=== PATIENT | female | born 1995 ===

== ENCOUNTER 2020-10-06 14:37 | Emergency (ER) | payer BC ==
--- NOTE | 2020-10-06 15:29 | EDM.PDOC ---
ED HPI GENERAL MEDICAL PROBLEM - General Chief Complaint: Genitourinary Problem Stated Complaint: POSSIBLE KIDNEY INFECTION Time Seen by Provider: 10/06/20 14:39 - History of Present Illness INITIAL COMMENTS - FREE TEXT/NARRATIVE: History of present illness: [] Patient is here for left flank pain radiating to left lower quadrant of the anterior abdomen. It is moderately severe. She has vomited at 1030 this morning. She has been nauseated. The patient has suffered from pain for most of her 16-week . Beginning of August she was told she had a ureter obstruction. In the middle of August she followed up with a urologist in [place] who told her that everything seemed okay. Previously had a course of antibiotics have been placed in the hospital for several days because of possible obstruction of her ureters. They never identified a stone for sure. A urologist in 08 September cleared her in [place] and said she was having pain secondary to just normal development of . She is a with 1 spontaneous at an early in . The patient was told she had a bladder infection the beginning of this month and had a 5-day course of Macrodantin. She continues to have the flank pain. Its worse with movement. Review of systems: As per history of present illness and below otherwise all systems reviewed and negative. Past medical history: As per history of present illness and as reviewed below otherwise noncontributory. Surgical history: As per history of present illness and as reviewed below otherwise noncontributory. Social history: No reported history of drug or alcohol abuse. Family history: As per history of present illness and as reviewed below otherwise noncontributory. Physical exam: Constitutional - well developed, well-nourished and in no acute distress HEENT - normocephalic, no evidence of trauma - external nose and mouth normal - no mass in neck and no JVD - mucosae moist EYES - full EOM, PERRL, no icterus - no evidence of inflammation, injection, or drainage Respiratory - no respiratory distress, equal bilateral expansion, lungs clear to auscultation and no abnormal lung sounds Cardiovascular - Regular Rhythm with S1 and S2 appreciated and no murmur, gallop or rub. GI - abdomen soft without distension or organomegaly - normal bowel sounds - no guard or rebound Musculoskeletal no gross deformity of long bones or joints - no tenderness, swelling or edema Neurologic - Alert and oriented times four - CN II-XII grossly intact - motor sensory and coordination symmetrically normal Psychiatric - appropriate mood and affect with normal thought content Hematologic - No petechiae or purpura - mucosa appropriate color and sclera not pale - normal nail bed color and refill Integument - no rash or evidence of trauma - normal turgor Diagnostics: [] Therapeutics: [] Impression: [] Plan: [] Definitive disposition and diagnosis as appropriate pending reevaluation and review of above. 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 Musculoskeletal History: Reports: None Neurological History: Reports: None Psychiatric History: Reports: Anxiety, Bipolar Endocrine/Metabolic History: Reports: None Hematologic History: Reports: None Oncologic (Cancer) History: Reports: None Dermatologic History: Reports: None - Infectious Disease History Infectious Disease History: Reports: Chicken Pox Social & Family History - Tobacco Use Tobacco Use Status *Q: Never Tobacco User - Caffeine Use Caffeine Use: Reports: None - Recreational Drug Use Recreational Drug Use: No ED ROS GENERAL - Review of Systems Review Of Systems: Comprehensive ROS is negative, except as noted in HPI. ED EXAM, GENERAL - Physical Exam Exam: See Below Free Text/Narrative:: My physical exam is in the HPI Course - Vital Signs Text/Narrative:: 1814-discussed with Dr. Layne. He had a ureteral stent was not indicated at this time. Follow-up arranged. Last Recorded V/S: Last Vital Signs Temp 36.2 C 10/06/20 15:01 Pulse 72 10/06/20 15:01 Resp 16 10/06/20 15:01 BP 105/55 L 10/06/20 15:01 Pulse Ox 100 10/06/20 15:01 - Orders/Labs/Meds Labs: Laboratory Tests 10/06/20 10/06/20 10/06/20 Range/Units 15:05 15:05 16:38 WBC 10.68 (4.0-11.0) K/uL RBC 3.75 L (4.30-5.90) M/uL Hgb 11.8 L (12.0-16.0) g/dL Hct 34.6 L (36.0-46.0) % MCV 92.3 (80.0-98.0) fL MCH 31.5 (27.0-32.0) pg MCHC 34.1 (31.0-37.0) g/dL RDW Std Deviation 43.7 (28.0-62.0) fl RDW Coeff of Jakub 13 (11.0-15.0) % Plt Count 230 (150-400) K/uL MPV 9.70 (7.40-12.00) fL Neut % (Auto) 77.4 (48.0-80.0) % Lymph % (Auto) 17.4 (16.0-40.0) % [place] % (Auto) 4.6 (0.0-15.0) % Eos % (Auto) 0.4 (0.0-7.0) % Baso % (Auto) 0.2 (0.0-1.5) % Neut # (Auto) 8.3 H (1.4-5.7) K/uL Lymph # (Auto) 1.9 (0.6-2.4) K/uL [place] # (Auto) 0.5 (0.0-0.8) K/uL Eos # (Auto) 0.0 (0.0-0.7) K/uL Baso # (Auto) 0.0 (0.0-0.1) K/uL Nucleated RBC % 0.0 /100WBC Nucleated RBCs # 0 K/uL Sodium (136-145) mmol/L Potassium (3.5-5.1) mmol/L Chloride (98-107) mmol/L Carbon Dioxide (21.0-32.0) mmol/L BUN (7.0-18.0) mg/dL Creatinine (0.6-1.0) mg/dL Est Cr Clr Drug Dosing mL/min Estimated GFR (MDRD) ml/min Glucose (74-106) mg/dL Calcium (8.5-10.1) mg/dL Total Bilirubin (0.2-1.0) mg/dL AST (15-37) IU/L ALT (14-63) IU/L Alkaline Phosphatase (46-116) U/L Total Protein (6.4-8.2) g/dL Albumin (3.4-5.0) g/dL Globulin (2.6-4.0) g/dL Albumin/Globulin Ratio (0.9-1.6) Lipase (73-393) U/L Urine Color YELLOW Urine Appearance CLEAR Urine pH 6.5 (5.0-8.0) Ur Specific [place] <= 1.005 (1.001-1.035) Urine Protein NEGATIVE (NEGATIVE) mg/dL Urine Glucose (UA) NEGATIVE (NEGATIVE) mg/dL Urine Ketones TRACE H (NEGATIVE) mg/dL Urine Occult Blood TRACE-INTACT H (NEGATIVE) Urine Nitrite NEGATIVE (NEGATIVE) Urine Bilirubin NEGATIVE (NEGATIVE) Urine Urobilinogen 0.2 (<2.0) EU/dL Ur Leukocyte Esterase NEGATIVE (NEGATIVE) Urine RBC 0-2 (0-2/HPF) Urine WBC 0-2 (0-5/HPF) Ur Epithelial Cells OCCASIONAL (NONE-FEW) Amorphous Sediment RARE (NEGATIVE) Urine Bacteria RARE (NEGATIVE) Urine Mucus RARE (NONE-MOD) Urine HCG, Qual POSITIVE (NEGATIVE) 10/06/20 Range/Units 16:38 WBC (4.0-11.0) K/uL RBC (4.30-5.90) M/uL Hgb (12.0-16.0) g/dL Hct (36.0-46.0) % MCV (80.0-98.0) fL MCH (27.0-32.0) pg MCHC (31.0-37.0) g/dL RDW Std Deviation (28.0-62.0) fl RDW Coeff of Jakub (11.0-15.0) % Plt Count (150-400) K/uL MPV (7.40-12.00) fL Neut % (Auto) (48.0-80.0) % Lymph % (Auto) (16.0-40.0) % [place] % (Auto) (0.0-15.0) % Eos % (Auto) (0.0-7.0) % Baso % (Auto) (0.0-1.5) % Neut # (Auto) (1.4-5.7) K/uL Lymph # (Auto) (0.6-2.4) K/uL [place] # (Auto) (0.0-0.8) K/uL Eos # (Auto) (0.0-0.7) K/uL Baso # (Auto) (0.0-0.1) K/uL Nucleated RBC % /100WBC Nucleated RBCs # K/uL Sodium 139 (136-145) mmol/L Potassium 3.7 (3.5-5.1) mmol/L Chloride 102 (98-107) mmol/L Carbon Dioxide 24.1 (21.0-32.0) mmol/L BUN 6 L (7.0-18.0) mg/dL Creatinine 0.6 (0.6-1.0) mg/dL Est Cr Clr Drug Dosing 131.85 mL/min Estimated GFR (MDRD) > 60.0 ml/min Glucose 83 (74-106) mg/dL Calcium 9.2 (8.5-10.1) mg/dL Total Bilirubin 0.4 (0.2-1.0) mg/dL AST 19 (15-37) IU/L ALT 21 (14-63) IU/L Alkaline Phosphatase 57 (46-116) U/L Total Protein 7.2 (6.4-8.2) g/dL Albumin 3.4 (3.4-5.0) g/dL Globulin 3.8 (2.6-4.0) g/dL Albumin/Globulin Ratio 0.9 (0.9-1.6) Lipase 65 L (73-393) U/L Urine Color Urine Appearance Urine pH (5.0-8.0) Ur Specific [place] (1.001-1.035) Urine Protein (NEGATIVE) mg/dL Urine Glucose (UA) (NEGATIVE) mg/dL Urine Ketones (NEGATIVE) mg/dL Urine Occult Blood (NEGATIVE) Urine Nitrite (NEGATIVE) Urine Bilirubin (NEGATIVE) Urine Urobilinogen (<2.0) EU/dL Ur Leukocyte Esterase (NEGATIVE) Urine RBC (0-2/HPF) Urine WBC (0-5/HPF) Ur Epithelial Cells (NONE-FEW) Amorphous Sediment (NEGATIVE) Urine Bacteria (NEGATIVE) Urine Mucus (NONE-MOD) Urine HCG, Qual (NEGATIVE) Departure - Departure Time of Disposition: 18:39 Disposition: Home, Self-Care 01 Condition: Good Clinical Impression: Abdominal pain, Hydronephrosis - Discharge Information Prescriptions: Acetaminophen/HYDROcodone [Yolyn 325-7.5 MG] 1 - 2 tab PO Q6H PRN #14 tab PRN Reason: Pain (Severe 7-10) Instructions: Hydronephrosis, Flank Pain, Adult, [id number] Referrals: PCP,Not In Area [Primary Care Provider] - Leighton Layne MD [Physician] - Forms: ED Department Discharge Additional Instructions: [facility] - Urology [address] [place] [id number] The following information is given to patients seen in the emergency department who are being discharged to home. This information is to outline your options for follow-up care. We provide all patients seen in our emergency department with a follow-up referral. The need for follow-up, as well as the timing and circumstances, are variable depending upon the specifics of your emergency department visit. If you don't have a primary care physician on staff, we will provide you with a referral. We always advise you to contact your personal physician following an emergency department visit to inform them of the circumstance of the visit and for follow-up with them and/or the need for any referrals to a consulting specialist. The emergency department will also refer you to a specialist when appropriate. This referral assures that you have the opportunity for follow-up care with a specialist. All of these measure are taken in an effort to provide you with optimal care, which includes your follow-up. Under all circumstances we always encourage you to contact your private physician who remains a resource for coordinating your care. When calling for follow-up care, please make the office aware that this follow-up is from your recent emergency room visit. If for any reason you are refused follow-up, please contact the [facility] Department at and asked to speak to the emergency department charge nurse. Sepsis Event Note (ED) - Evaluation Sepsis Screening Result: No Definite Risk - Focused Exam Vital Signs: Vital Signs Temp Pulse Resp BP Pulse Ox 10/06/20 15:01 36.2 C 72 16 105/55 L 100
--- NOTE | 2020-10-06 17:01 | US ---
Indication: Left flank pain, recent UTI Technique: Multiple grayscale and color Doppler sonographic images of the kidneys and urinary bladder. Comparison: None Findings: The right kidney measures 10.6 x 4.6 x 5.1 cm and demonstrates normal renal cortical thickness and parenchymal echotexture. There is no hydronephrosis. The left kidney measures 13.0 x 5.3 x 7.0 cm and demonstrates normal cortical thickness and parenchymal echotexture. There is mild to moderate hydronephrosis. No stones are seen in the renal collecting system or visualized proximal ureter. The urinary bladder is unremarkable. Bilateral ureteral jets are demonstrated. There is postvoid bladder volume approximately 9 mL. Impression: 1. Mild to moderate left hydronephrosis. No renal stone demonstrated in the renal collecting system or visualized proximal ureter. The mid to distal ureter is not visualized. 2. Unremarkable right kidney. Unremarkable urinary bladder. Bilateral ureteral jets demonstrated. Dictated by Amandeep Rosales MD @ Oct 06 2020 4:54PM Signed by Dr. Amandeep Rosales @ Oct 06 2020 5:00PM
[2020-10-06 17:39] LABS: BLOOD UREA NITROGEN,BUN 6 mg/dL (7.0-18.0); CARBON DIOXIDE,CO2 24.1 mmol/L (21.0-32.0); CHLORIDE,CL 102 mmol/L (98-107); GLUCOSE RANDOM 83 mg/dL (74-106); LIPASE 65 U/L (73-393); POTASSIUM,K 3.7 mmol/L (3.5-5.1); SODIUM,NA 139 mmol/L (136-145)
== END 2020-10-06 18:50 | disposition home or self-care (01) ==
LOC: MW.ED 14:37
DX: O99.891 Other specified diseases and conditions complicating pregnancy (principal); R10.32 Left lower quadrant pain; N13.30 Unspecified hydronephrosis; Z91.040 Latex allergy status; Z88.5 Allergy status to narcotic agent; Z3A.16 16 weeks gestation of pregnancy
CPT/HCPCS: 36415; 76775; 76775-26; 80053; 81001; 81025; 83690; 85025; 99283; 99284-25

== ENCOUNTER 2021-03-11 11:44 | Inpatient (IN) | payer BC ==
[2021-03-11] MEDS ORDERED: Ondansetron 4 MG/2 ML SDV IVPUSH PRN (11:45)
[2021-03-11] MEDS ORDERED: Butorphanol 1 MG/ML SDV IVPUSH PRN (11:45)
[2021-03-11] MEDS ORDERED: Water For Irrigation,Sterile 1,000 ML Container IRR PRN (11:45)
[2021-03-11] MEDS ORDERED: Nalbuphine 10 MG/1 ML Vial IVPUSH PRN (11:45)
[2021-03-11] MEDS ORDERED: Tranexamic Acid 1,000 MG in Sodium Chloride 0.9% 100 ML IV PRN (13:10)
[2021-03-11] MEDS ORDERED: Lidocaine 1% 50 ML MDV INJECT PRN (13:10)
[2021-03-11] MEDS ORDERED: Misoprostol 200 MCG Tab PO PRN (13:10)
[2021-03-11] MEDS ORDERED: Sodium Chloride 0.9% 10 ML Syringe FLUSH PRN (13:10)
[2021-03-11] MEDS ORDERED: Carboprost Tromethamine 250 MCG/1 ML Amp IM PRN (13:10)
[2021-03-11] MEDS ORDERED: Methylergonovine 0.2 MG/1 ML Amp IM PRN (13:10)
[2021-03-11] MEDS ORDERED: Terbutaline 1 MG/ML SDV SUBCUT PRN (13:10)
[2021-03-11] MEDS ORDERED: Sodium Chloride 0.9% 10 ML SDV IV PRN (13:10)
[2021-03-11] MEDS ORDERED: Sodium Chloride 0.9% 2.5 ML Syringe FLUSH PRN (13:10)
[2021-03-11] MEDS ORDERED: Misoprostol 25 MCG (1/4 of 100 MCG) Tab VAG PRN ×2 (13:10)
[2021-03-11] MEDS ORDERED: Oxytocin/0.9 % Sodium Chloride 30 UNIT/500 ML BAG IV SCH ×2 (13:15)
[2021-03-11] MEDS: Misoprostol 25 MCG (1/4 of 100 MCG) Tab PO SCH ×2 (13:48→23:16)
[2021-03-11] MEDS: Lactated Ringers 1,000 ML IV SCH ×4 (14:03→23:16)
[2021-03-11 15:16] LABS: BLOOD UREA NITROGEN,BUN 10 mg/dL (7.0-18.0); CARBON DIOXIDE,CO2 24.5 mmol/L (21.0-32.0); CHLORIDE,CL 103 mmol/L (98-107); GLUCOSE RANDOM 81 mg/dL (74-106); POTASSIUM,K 3.9 mmol/L (3.5-5.1); SODIUM,NA 135 mmol/L (136-145)
--- NOTE | 2021-03-11 15:45 | PCM.LDHP ---
L&D History of Present Illness - General Date of Service: 03/11/21 Admit Problem/Dx: Patient Status Order with Admit Dx/Problem 03/11/21 11:45 Patient Status [ADT] Routine Admission Diagnosis/Problem Admission Diagnosis/Problem 03/11/21 15:45 Mone is a 25 yo at 39+0 weeks (PRESTON(US) 03/18/2021) that presents today for IOL re: renal calculi complicated with nephrostomy tube left side. Reports FM. Denies vaginal bleeding, LOF, painful contractions or any other problems at this time. O pos, RI, GBS neg Ax: morphine, latex. Pertinent medical hx: renal calculi complicated with nephrostomy tube left side, migraines, anxiety, depression. Last seen in clinic 03/08/2021, RBAs/SEs of IOL with cervical ripening methods including cytotec administration discussed in office, consents signed. Patient verbalizes desire to continue with IOL POC; no questions, comments, or concerns at this time. 03/11/21 15:55 Source of Information: Patient History Limitations: Reports: No Limitations - History of Present Illness Improves with: Reports: None Worsens with: Reports: None Associated Symptoms: Reports: N - Related Data Allergies/Adverse Reactions: Allergies Allergy/AdvReac Type Severity Reaction Status Date / Time latex Allergy Itching Verified 03/11/21 11:57 morphine Allergy Difficulty Verified 03/11/21 11:57 Breathing Home Medications: Home Meds Acetaminophen/Butalbital/Caff [Fioricet 325-50-40 MG] 1 each PO Q4H 03/11/21 [History] Cefdinir [Omnicef] 600 mg PO DAILY 03/11/21 [History] Sertraline [Zoloft] 1 tab PO DAILY 03/11/21 [History] hydrOXYzine HCL [Atarax] 50 mg PO BEDTIME 03/11/21 [History] Past Medical History HEENT History: Reports: None Cardiovascular History: Reports: None Respiratory History: Reports: None Gastrointestinal History: Reports: None Genitourinary History: Reports: Pyelonephritis, Renal Calculus (Left nephrostomy in place.), UTI, Recurrent 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 History: Reports: , Spontaneous (x 1) : 2 Para: 0 LMP (Approximate): Other OB/BYN History: pt is 18 weeks Musculoskeletal History: Reports: None Neurological History: Reports: Migraines Psychiatric History: Reports: Anxiety (untreated), Bipolar (untreated), Depression (untreated), Eating Disorders, Other (See Below) (Insomnia) Endocrine/Metabolic History: Reports: None Hematologic History: Reports: None Oncologic (Cancer) History: Reports: None Dermatologic History: Reports: None - Infectious Disease History Infectious Disease History: Reports: Chicken Pox - Past Surgical History HEENT Surgical History: Reports: Other (See Below) (Mandible surgery) GI Surgical History: Reports: Colonoscopy (x 2), EGD (x 2) Social & Family History - Family History Family Medical History: No Pertinent Family History - Tobacco Use Tobacco Use Status *Q: Never Tobacco User - Caffeine Use Caffeine Use: Reports: None - Alcohol Use Alcohol Use History: No - Recreational Drug Use Recreational Drug Use: No - Living Situation & Occupation Living situation: Reports: Single, with Significant Other (Boyfriend) Occupation: Employed ([employer]) H&P Review of Systems - Review of Systems: Review Of Systems: Comprehensive ROS is negative, except as noted in HPI. General: Reports: No Symptoms HEENT: Reports: No Symptoms Pulmonary: Reports: No Symptoms Cardiovascular: Reports: No Symptoms Gastrointestinal: Reports: No Symptoms Genitourinary: Reports: No Symptoms Musculoskeletal: Reports: No Symptoms Skin: Reports: No Symptoms Psychiatric: Reports: No Symptoms Neurological: Reports: No Symptoms Hematologic/Lymphatic: Reports: No Symptoms Immunologic: Reports: No Symptoms L&D Exam - Exam Exam: See Below - Vital Signs Vital Signs: VSS, afebrile. See flowsheet Weight: 201 lb - OB Specific Fundal Height In cm: 39 Contraction Duration (sec): 40-70 Contraction Frequency (min): Occasional mild Contraction Intensity: Irritability Movement: Active Heart Tones: Present Heart Tones per Min: 140 Heart Rate (FHR) Variability: Moderate (6-25 bmp) Presentation: Vertex (via handheld TAUS) - Obregon Score Obregon Score Cervix Position: Posterior Obregon Score Consistency: Firm Obregon Score Effacement: 0-30% Obregon Score Dilation: Closed Obregon Score Infant's Station: -3 Obregon Score Total: 0 - Exam General: Alert, Oriented, Cooperative HEENT: Conjunctiva Clear, Mucosa Moist & Bernice, PERRLA Neck: Supple, Trachea Midline Lungs: Clear to Auscultation, Normal Respiratory Effort Cardiovascular: Regular Rate, Regular Rhythm GI/Abdominal Exam: Normal Bowel Sounds, Soft, Non-Tender, No Organomegaly, No Distention Rectal Exam: Deferred Genitourinary: Normal external exam, Normal bimanual exam, Enlarged uterus (Gravid uterus) Back Exam: Normal Inspection, Full Range of Motion Extremities: Normal Inspection, Normal Range of Motion, Non-Tender, No Pedal Edema, Normal Capillary Refill Skin: Warm, Dry, Intact Neurological: Cranial Nerves Intact, Reflexes Equal Bilateral Psychiatric: Alert, Normal Affect, Normal Mood - Patient Data Lab Results Last 24 hrs: Laboratory Results - last 24 hr 03/11/21 03/11/21 03/11/21 Range/Units 12:50 12:55 12:55 WBC 10.82 (4.0-11.0) K/uL RBC 3.76 L (4.30-5.90) M/uL Hgb 10.4 L (12.0-16.0) g/dL Hct 31.9 L (36.0-46.0) % MCV 84.8 (80.0-98.0) fL MCH 27.7 (27.0-32.0) pg MCHC 32.6 (31.0-37.0) g/dL RDW Std Deviation 43.1 (28.0-62.0) fl RDW Coeff of Jakub 14 (11.0-15.0) % Plt Count 308 (150-400) K/uL MPV 10.00 (7.40-12.00) fL Nucleated RBC % 0.0 /100WBC Nucleated RBCs # 0 K/uL Sodium (136-145) mmol/L Potassium (3.5-5.1) mmol/L Chloride (98-107) mmol/L Carbon Dioxide (21.0-32.0) mmol/L BUN (7.0-18.0) mg/dL Creatinine (0.6-1.0) mg/dL Est Cr Clr Drug Dosing mL/min Estimated GFR (MDRD) ml/min Glucose (74-106) mg/dL Calcium (8.5-10.1) mg/dL SARS-CoV-2 RNA (TNOY) NEGATIVE (NEGATIVE) Blood Type O POSITIVE Antibody Screen NEGATIVE 03/11/21 Range/Units 12:55 WBC (4.0-11.0) K/uL RBC (4.30-5.90) M/uL Hgb (12.0-16.0) g/dL Hct (36.0-46.0) % MCV (80.0-98.0) fL MCH (27.0-32.0) pg MCHC (31.0-37.0) g/dL RDW Std Deviation (28.0-62.0) fl RDW Coeff of Jakub (11.0-15.0) % Plt Count (150-400) K/uL MPV (7.40-12.00) fL Nucleated RBC % /100WBC Nucleated RBCs # K/uL Sodium 135 L (136-145) mmol/L Potassium 3.9 (3.5-5.1) mmol/L Chloride 103 (98-107) mmol/L Carbon Dioxide 24.5 (21.0-32.0) mmol/L BUN 10 (7.0-18.0) mg/dL Creatinine 0.8 (0.6-1.0) mg/dL Est Cr Clr Drug Dosing 98.88 mL/min Estimated GFR (MDRD) > 60.0 ml/min Glucose 81 (74-106) mg/dL Calcium 7.9 L (8.5-10.1) mg/dL SARS-CoV-2 RNA (TONY) (NEGATIVE) Blood Type Antibody Screen Result Diagrams: 03/11/21 12:55 03/11/21 12:55 - Problem List (1) Encounter for induction of labor SNOMED Code(s): 359889317 ICD Code: Z34.90 - ENCNTR FOR SUPRVSN OF NORMAL , UNSP, UNSP TRIMEST ER Status: Acute Priority: High Current Visit: Yes (2) H/O nephrostomy SNOMED Code(s): 467583515 ICD Code: YTH9122 - Status: Acute Priority: High Current Visit: Yes (3) Renal calculus, left SNOMED Code(s): 83107437 ICD Code: N20.0 - CALCULUS OF KIDNEY Status: Acute Priority: High Current Visit: Yes Problem List Initiated/Reviewed/Updated: Yes Orders Last 24hrs: Active Orders 24 hr Category Date Time Status Patient Status [ADT] Routine ADT 03/11/21 11:45 Active Bedrest Bathroom Privileges [RC] ASDIRECTED Care 03/11/21 13:10 Active Communication Order [RC] ASDIRECTED Care 03/11/21 13:10 Active Communication Order [RC] ASDIRECTED Care 03/11/21 13:10 Active Communication Order [RC] ASDIRECTED Care 03/11/21 13:10 Active Heart Tones [RC] CONTINUOUS Care 03/11/21 11:45 Active Non Stress Test [RC] PER UNIT ROUTINE Care 03/11/21 11:45 Active May Shower [RC] ASDIRECTED Care 03/11/21 11:45 Active Notify Provider [RC] PRN Care 03/11/21 11:45 Active Notify Provider [RC] PRN Care 03/11/21 13:10 Active Notify Provider [RC] PRN Care 03/11/21 13:10 Active Notify Provider [RC] STAT Care 03/11/21 13:10 Active Oxygen Therapy [RC] ASDIRECTED Care 03/11/21 13:10 Active Up ad Ruth [RC] ASDIRECTED Care 03/11/21 11:45 Active Vaginal Exam [RC] PRN Care 03/11/21 11:45 Active Vaginal Exam [RC] PRN Care 03/11/21 13:10 Active Vital Signs [RC] PER UNIT ROUTINE Care 03/11/21 11:45 Active Vital Signs [RC] PER UNIT ROUTINE Care 03/11/21 13:10 Active Regular Diet [DIET] Diet 03/11/21 Lunch Active RPR (SYPHILIS SERO) W/ RFLX [REF] Routine Lab 03/11/21 12:55 Received Carboprost Tromethamine [Hemabate DS] Med 03/11/21 13:10 Active 250 mcg IM ASDIRECTED PRN Lactated Ringers [Ringers, Lactated] 1,000 ml Med 03/11/21 13:15 Active IV ASDIRECTED Lidocaine 1% [Xylocaine 1%] Med 03/11/21 13:10 Active 50 ml INJECT ONETIME PRN Methylergonovine [Methergine] Med 03/11/21 13:10 Active 0.2 mg IM ASDIRECTED PRN Ondansetron [Zofran] Med 03/11/21 11:45 Active 4 mg IVPUSH Q4H PRN Oxytocin/0.9 % Sodium Chloride [Oxytocin 30 Unit/500 ML Med 03/11/21 13:15 Active -NS] 30 unit in 500 ml IV TITRATE Oxytocin/0.9 % Sodium Chloride [Oxytocin 30 Unit/500 ML Med 03/11/21 13:15 Active -NS] 30 unit in 500 ml IV TITRATE Sodium Chloride 0.9% [Normal Saline] Med 03/11/21 13:10 Active 10 ml IV ASDIRECTED PRN Sodium Chloride 0.9% [Saline Flush] Med 03/11/21 13:10 Active 10 ml FLUSH ASDIRECTED PRN Sodium Chloride 0.9% [Saline Flush] Med 03/11/21 13:10 Active 2.5 ml FLUSH ASDIRECTED PRN Terbutaline [Brethine] Med 03/11/21 13:10 Active 0.25 mg SUBCUT ASDIRECTED PRN Tranexamic Acid [Cyklokapron] 1,000 mg Med 03/11/21 13:10 Active Sodium Chloride 0.9% [Normal Saline] 100 ml IV ONETIME Water For Irrigation,Sterile [Sterile Water for Med 03/11/21 11:45 Active Irrigation] 1,000 ml IRR ASDIRECTED PRN miSOPROStoL [Cytotec] Med 03/11/21 13:10 Active 200 mcg PO ONETIME PRN miSOPROStoL [Cytotec] Med 03/11/21 13:30 Active 25 mcg PO Q4H miSOPROStoL [Cytotec] Med 03/11/21 13:10 Active 25 mcg VAG ONETIME PRN miSOPROStoL [Cytotec] Med 03/11/21 13:10 Active 25 mcg VAG Q4H PRN Scalp Electrode [WOMSER] Per Unit Routine Oth 03/11/21 11:45 Ordered Medication Administration Instruction [OM.PC] Q3H Oth 03/11/21 13:15 Ordered Peripheral IV Insertion Adult [OM.PC] Routine Oth 03/11/21 11:45 Ordered Resuscitation Status Routine Resus Stat 03/11/21 13:10 Ordered Medication Orders Carboprost Tromethamine (Carboprost Tromethamine 250 Mcg/1 Ml Amp) 250 mcg IM ASDIRECTED PRN PRN Reason: Post Hemorrhage Oxytocin/Sodium Chloride (Oxytocin 30 Unit/500 Ml-Ns) 30 unit in 500 mls @ 999 mls/hr IV TITRATE ZANDER Tranexamic Acid 1,000 mg/ (Sodium Chloride) 110 mls @ 660 mls/hr IV ONETIME PRN PRN Reason: Bleeding Oxytocin/Sodium Chloride (Oxytocin 30 Unit/500 Ml-Ns) 30 unit in 500 mls @ 2 mls/hr IV TITRATE [facility]; Protocol Lactated Ringer's (Ringers, Lactated) 1,000 mls @ 150 mls/hr IV ASDIRECTED [facility] Last Admin: 03/11/21 14:03 Dose: 150 mls/hr Documented by: RANDELL Lidocaine HCl (Lidocaine 1% 50 Ml Mdv) 50 ml INJECT ONETIME PRN PRN Reason: Laceration repair Methylergonovine Maleate (Methylergonovine 0.2 Mg/1 Ml Amp) 0.2 mg IM ASDIRECTED PRN PRN Reason: Post Hemorrhage Misoprostol (Misoprostol 200 Mcg Tab) 200 mcg PO ONETIME PRN PRN Reason: Post Hemorrhage Misoprostol (Misoprostol 25 Mcg (1/4 Of 100 Mcg) Tab) 25 mcg VAG ONETIME PRN PRN Reason: Cervical Ripening Misoprostol (Misoprostol 25 Mcg (1/4 Of 100 Mcg) Tab) 25 mcg VAG Q4H PRN PRN Reason: Cervical Ripening Last Admin: 03/11/21 13:43 Dose: 25 mcg Documented by: RANDELL Misoprostol (Misoprostol 25 Mcg (1/4 Of 100 Mcg) Tab) 25 mcg PO Q4H [facility] Last Admin: 03/11/21 13:48 Dose: 25 mcg Documented by: RANDELL Ondansetron HCl (Ondansetron 4 Mg/2 Ml Sdv) 4 mg IVPUSH Q4H PRN PRN Reason: Nausea/Vomiting Sodium Chloride (Sodium Chloride 0.9% 10 Ml Syringe) 10 ml FLUSH ASDIRECTED PRN PRN Reason: Keep Vein Open Sodium Chloride (Sodium Chloride 0.9% 2.5 Ml Syringe) 2.5 ml FLUSH ASDIRECTED PRN PRN Reason: Keep Vein Open Sodium Chloride (Sodium Chloride 0.9% 10 Ml Sdv) 10 ml IV ASDIRECTED PRN PRN Reason: IV Use Sterile Water (Water For Irrigation,Sterile 1,000 Ml Container) 1,000 ml IRR ASDIRECTED PRN PRN Reason: delivery Terbutaline Sulfate (Terbutaline 1 Mg/Ml Sdv) 0.25 mg SUBCUT ASDIRECTED PRN PRN Reason: Tacysystole Assessment/Plan Comment:: Admit to inpatient observation for planned IOL re: left renal calculi complicated with nephrostomy tube in place in anticipation of of viable term . Labs unremarkable. To consult anesthesia for: saline or lidocaine- derivative bilateral (posterior superior iliac spine) PSIS and (posterior inferior iliac spine) PIIS blocks landmarks for intense low back pain; pudendal nerve block for intense vaginal pain; or lidocaine-derivative epidural or block for BLE analgesia. Morphine-derivatives contraindicated due to high alert allergy; NSAIDs contraindicated due to and renal risk. Regular diet as tolerated. Maintain continuous monitoring until reactive Cat I NST achieved, otherwise continuously monitor. May ambulate and utilize comfort measures as needed. Hydrotherapy contraindicated. See new orders. Dr. Valencia notified and agreeable with POC.
[2021-03-11] MEDS ORDERED: Acetaminophen/Butalbital/Caffeine 325-50-40 MG Tab PO PRN (18:56)
[2021-03-11] MEDS ORDERED: hydrOXYzine HCl 25 MG Tab PO SCH (21:00)
[2021-03-11] MEDS ORDERED: Cefdinir 300 MG Cap PO SCH (21:00)
[2021-03-12] MEDS ORDERED: Ropivacaine HCl/PF 200 ML ONE (04:26)
--- NOTE | 2021-03-12 05:02 | PCM.PREANE ---
Preanesthetic Assessment - Procedure Proposed Procedure: HAMIDA for active labor (full term) - Anesthesia/Transfusion/Family Hx Anesthesia History: Prior Anesthesia Reaction (Nephrostomy tube, wisdom teeth, tonsils, and jaw surgery without anesthesia complications) Family History of Anesthesia Reaction: No Transfusion History: No Prior Transfusion(s) Additional History: Anxiety, depression (taking hydroxyzine) Headaches (taking acetaminophen/butalbital/caffeine) Renal calculus complicated by infection with nephrostomy tube placement ~6 months ago. Bactrim until 32 weeks, then cefdinir twice daily - Review of Systems General: No Symptoms Pulmonary: No Symptoms Cardiovascular: No Symptoms Gastrointestinal: No Symptoms Neurological: No Symptoms Other: Reports: None - Physical Assessment NPO Status Date: 03/12/21 NPO Status Time: 13:00 (except clear liquids) Vital Signs: Last Vital Signs Temp Pulse Resp BP Pulse Ox 100 03/11/21 18:10 Height: 1.68 m Weight: 91.172 kg ASA Class: 2 Mental Status: Alert & Oriented x3 Airway Class: Mallampati = 2 Dentition: Reports: Normal Dentition Thyro-Mental Finger Breadths: 4 Mouth Opening Finger Breadths: 3 ROM/Head Extension: Full Lungs: Clear to Auscultation, Normal Respiratory Effort Cardiovascular: Regular Rate, Regular Rhythm - Lab Values: Laboratory Last Values WBC 10.82 K/uL (4.0-11.0) 03/11/21 12:55 RBC 3.76 M/uL (4.30-5.90) L 03/11/21 12:55 Hgb 10.4 g/dL (12.0-16.0) L 03/11/21 12:55 Hct 31.9 % (36.0-46.0) L 03/11/21 12:55 MCV 84.8 fL (80.0-98.0) 03/11/21 12:55 MCH 27.7 pg (27.0-32.0) 03/11/21 12:55 MCHC 32.6 g/dL (31.0-37.0) 03/11/21 12:55 RDW Std Deviation 43.1 fl (28.0-62.0) 03/11/21 12:55 RDW Coeff of Jakub 14 % (11.0-15.0) 03/11/21 12:55 Plt Count 308 K/uL (150-400) 03/11/21 12:55 MPV 10.00 fL (7.40-12.00) 03/11/21 12:55 Nucleated RBC % 0.0 /100WBC 03/11/21 12:55 Nucleated RBCs # 0 K/uL 03/11/21 12:55 Sodium 135 mmol/L (136-145) L 03/11/21 12:55 Potassium 3.9 mmol/L (3.5-5.1) 03/11/21 12:55 Chloride 103 mmol/L (98-107) 03/11/21 12:55 Carbon Dioxide 24.5 mmol/L (21.0-32.0) 03/11/21 12:55 BUN 10 mg/dL (7.0-18.0) 03/11/21 12:55 Creatinine 0.8 mg/dL (0.6-1.0) 03/11/21 12:55 Est Cr Clr Drug Dosing 98.88 mL/min 03/11/21 12:55 Estimated GFR (MDRD) > 60.0 ml/min 03/11/21 12:55 Glucose 81 mg/dL (74-106) 03/11/21 12:55 Calcium 7.9 mg/dL (8.5-10.1) L 03/11/21 12:55 SARS-CoV-2 RNA (TONY) NEGATIVE (NEGATIVE) 03/11/21 12:50 Blood Type O POSITIVE 03/11/21 12:55 Antibody Screen NEGATIVE 03/11/21 12:55 - Allergies Allergies/Adverse Reactions: Allergies Allergy/AdvReac Type Severity Reaction Status Date / Time latex Allergy Itching Verified 03/11/21 11:57 morphine Allergy Difficulty Verified 03/11/21 11:57 Breathing - Acknowledgements Anesthesia Type Planned: Epidural Pt an Appropriate Candidate for the Planned Anesthesia: Yes Alternatives and Risks of Anesthesia Discussed w Pt/Guardian: Yes Pt/Guardian Understands and Agrees with Anesthesia Plan: Yes Additional Comments: Thorough H & P with patient participation. Labs, chart, meds reviewed. Discussed risks, benefits, alternatives, procedure, and MEETING COORDINATOR with patient. All questions answered and concerns addressed. Consent signed with RN witness. 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 History: Reports: , Spontaneous Other OB/BYN History: pt is 18 weeks Musculoskeletal History: Reports: None Neurological History: Reports: Migraines Psychiatric History: Reports: Anxiety, Bipolar, Depression, Eating Disorders, Other (See Below) Endocrine/Metabolic History: Reports: None Hematologic History: Reports: None Oncologic (Cancer) History: Reports: None Dermatologic History: Reports: None - Infectious Disease History Infectious Disease History: Reports: Chicken Pox - Past Surgical History HEENT Surgical History: Reports: Other (See Below) (Mandible surgery) GI Surgical History: Reports: Colonoscopy (x 2), EGD (x 2) - SUBSTANCE USE Tobacco Use Status *Q: Never Tobacco User Recreational Drug Use History: No - HOME MEDS Home Medications: Home Meds Acetaminophen/Butalbital/Caff [Fioricet 325-50-40 MG] 1 each PO Q4H 03/11/21 [History] Cefdinir [Omnicef] 600 mg PO DAILY 03/11/21 [History] Sertraline [Zoloft] 1 tab PO DAILY 03/11/21 [History] hydrOXYzine HCL [Atarax] 50 mg PO BEDTIME 03/11/21 [History] - CURRENT (IN HOUSE) MEDS Current Meds: Current Medications Acetaminophen/Butalbital/Caffeine (Acetaminophen/Butalbital/Caffeine 325-50-40 Mg Tab) 2 tab PO Q6H PRN PRN Reason: Headache/Pain Carboprost Tromethamine (Carboprost Tromethamine 250 Mcg/1 Ml Amp) 250 mcg IM ASDIRECTED PRN PRN Reason: Post Hemorrhage Cefdinir (Cefdinir 300 Mg Cap) 300 mg PO BID ZANDER Hydroxyzine HCl (Hydroxyzine Hcl 25 Mg Tab) 50 mg PO BEDTIME ZANDER Oxytocin/Sodium Chloride (Oxytocin 30 Unit/500 Ml-Ns) 30 unit in 500 mls @ 999 mls/hr IV TITRATE ZANDER Tranexamic Acid 1,000 mg/ (Sodium Chloride) 110 mls @ 660 mls/hr IV ONETIME PRN PRN Reason: Bleeding Oxytocin/Sodium Chloride (Oxytocin 30 Unit/500 Ml-Ns) 30 unit in 500 mls @ 2 mls/hr IV TITRATE ZANDER; Protocol Lactated Ringer's (Ringers, Lactated) 1,000 mls @ 150 mls/hr IV ASDIRECTED ZANDER Last Admin: 03/11/21 23:16 Dose: 150 mls/hr Documented by: Lidocaine HCl (Lidocaine 1% 50 Ml Mdv) 50 ml INJECT ONETIME PRN PRN Reason: Laceration repair Methylergonovine Maleate (Methylergonovine 0.2 Mg/1 Ml Amp) 0.2 mg IM ASDIRECTED PRN PRN Reason: Post Hemorrhage Misoprostol (Misoprostol 200 Mcg Tab) 200 mcg PO ONETIME PRN PRN Reason: Post Hemorrhage Misoprostol (Misoprostol 25 Mcg (1/4 Of 100 Mcg) Tab) 25 mcg VAG ONETIME PRN PRN Reason: Cervical Ripening Last Admin: 03/11/21 23:16 Dose: 25 mcg Documented by: Misoprostol (Misoprostol 25 Mcg (1/4 Of 100 Mcg) Tab) 25 mcg VAG Q4H PRN PRN Reason: Cervical Ripening Last Admin: 03/11/21 13:43 Dose: 25 mcg Documented by: Misoprostol (Misoprostol 25 Mcg (1/4 Of 100 Mcg) Tab) 25 mcg PO Q4H ZANDER Last Admin: 03/11/21 23:16 Dose: 25 mcg Documented by: Ondansetron HCl (Ondansetron 4 Mg/2 Ml Sdv) 4 mg IVPUSH Q4H PRN PRN Reason: Nausea/Vomiting Sertraline HCl (Sertraline 50 Mg Tab) 50 mg PO DAILY [facility] Sodium Chloride (Sodium Chloride 0.9% 10 Ml Syringe) 10 ml FLUSH ASDIRECTED PRN PRN Reason: Keep Vein Open Sodium Chloride (Sodium Chloride 0.9% 2.5 Ml Syringe) 2.5 ml FLUSH ASDIRECTED PRN PRN Reason: Keep Vein Open Sodium Chloride (Sodium Chloride 0.9% 10 Ml Sdv) 10 ml IV ASDIRECTED PRN PRN Reason: IV Use Sterile Water (Water For Irrigation,Sterile 1,000 Ml Container) 1,000 ml IRR ASDIRECTED PRN PRN Reason: delivery Terbutaline Sulfate (Terbutaline 1 Mg/Ml Sdv) 0.25 mg SUBCUT ASDIRECTED PRN PRN Reason: Tacysystole Discontinued Medications Ropivacaine (Naropin 0.2%) Confirm Administered Dose 200 mls @ as directed .ROUTE .[email or web address].fm-[email or web address] ONE Stop: 03/12/21 04:27
--- NOTE | 2021-03-12 05:07 | PCM.SN.2 ---
- Free Text/Narrative Note: HAMIDA for active labor Anesthesia time 0104-1030 0428- To LDR 1, thorough H&P with patient cooperation. Labs and chart reviewed. Discussed epidural risks, benefits, alternatives, procedure, and PAIN MANAGEMENT SPECIALIST. All questions answered and concerns addressed. 0430- Consent signed with RN witness. 0431- Sitting position, ASA monitors on, VSS. Time-out. 0432- Sterile procedure employed (gloves, hat), chlorhexidine prep., sterile plastic drape. 0435- Localized with lido 1% at L3-4 0438- 1st attempt successful at L3-4. GABRIELLA with saline at 7 cm, catheter threaded without resistance to 12 cm. No paresthesias. 0440 - Negative to aspiration for both CSF and heme, test dose negative. 0450 - Bolus dose (6 ml Ropivicaine 0.2%) and continuous infusion started (8 ml/hr ropivicaine 0.2%, 4ml PAIN MANAGEMENT SPECIALIST option every 10 min, hourly lockout 36ml). Education provided on PAIN MANAGEMENT SPECIALIST, verbalized understanding. 0508- Adequate pain control, T0 level, VSS.
[2021-03-12] MEDS ORDERED: Sertraline 50 MG Tab PO SCH (09:00)
[2021-03-12] MEDS ORDERED: Fluticasone Propionate Nasal Spray 16 GM Bottle NASBOTH SCH (09:30)
[2021-03-12] MEDS ORDERED: diphenhydrAMINE 25 MG Cap PO PRN (13:24)
--- NOTE | 2021-03-12 18:51 | PCM.DEL ---
L & D Note - General Info Date of Service: 03/12/21 Mother's Due Date: 03/18/21 - Delivery Note Labor: Augmented by ARM, Augmented by Oxytocin Cervical Ripening Method: Misoprostil Delivery Outcome: Livebirth Infant Delivery Method: Spontaneous Vaginal Delivery-Single Delivery Mode: Spontaneous Presentation: Left Occiput Anterior (LAMIN) Nuchal Cord: None Anesthesia Type: Epidural Amniotic Fluid Description: Clear Episiotomy Type: None Laceration: Periurethral (Minor skin tear, left, hemostatic with pressure, not repaired.) Placenta: Intact, Spontaneous Cord: 3 Vessels Estimated Blood Loss: 250 Provider: Alyssa Esteban Score 1 min: 4 Score 5 min: 7 Score 10 min: 9 Second Stage Interventions: Reports: Second Nurse Reviewed Heart Tones, Encouragement Given, Pushing Effectively, Pushing, Stirrups/Leg Supports Delivery Comments (Free Text/Narrative):: Mone is a 25 yo current s/p of viable term NBF at 39+1 weeks (PRESTON(US) 03/18/2021) following IOL re: renal calculi complicated with nephrostomy tube left side; cytotec cervical ripening, AROM+pitocin (3 milliunits/min) augmentation. O pos, RI, GBS neg. BLE epidural analgesia in place, pain well tolerated. IUPC/FSE in place for continuous monitoring. Tracey catheter removed. Started pushing at 5:13 pm. Recurrent prolonged variable and late decelerations into 40s to 90s lasting 1-4 min with slow recovery to 150s to 180s noted with pushing. Right side lying position achieved between pushes with O2 applied for resuscitation and continued for duration of pushing/. Dr. Valencia, [employer] Driver, and RT called to bedside at 5:18 pm for resuscitation if needed. Patient continued to push adequately with contractions. At ~ 1745, discussed RBAs of Kiwi vacuum delivery if needed, patient verbalizes understanding. IUPC removed. head delivered spontaneously LAMIN, FSE cut from cord, still attached to scalp; body immediately followed with the next push at 1751. Kiwi vacuum not utilized for . Umbilical cord immediately clamped x 2, cut by CNM. NBF brought to warmer for resuscitation and assessment. Cord blood collected from umbilical cord; segment then clamped and removed for collected for cord blood gasses. Placenta birthed ~ 3-4 min s/p NBF, Mejia, intact, 3VC. Perineum intact; minor superficial left lisa- urethral skin tear noted, hemostatic with pressure, not repaired. EBL 250 ml. APGARS . weight 2890 g (6 lb 6 oz) Induction Criteria - Obregon Score Obregon Score Dilation: Closed Obregon Score Effacement: 0-30% Obregon Score 's Station: -3 Obregon Score Consistency: Firm Obregon Score Cervix Position: Posterior Obregon Score Total: 0 Obregon Score Presenting Part: Reports: Cephalic - Induction Gestational Age >/= 39 wks: Yes Estimated Pelvis: Reports: Adequate Reassuring Monitoring Strip: Yes Absence of Tachy Systole: Yes - Augmentation Estimated Pelvis: Reports: Adequate Weight Estimated:: Reports: AGA - General Info Date of Service: 03/12/21 Admission Dx/Problem (Free Text): Patient Status Order with Admit Dx/Problem 03/11/21 11:45 Patient Status [ADT] Routine Admission Diagnosis/Problem Admission Diagnosis/Problem 03/11/21 15:45 Mone is a 25 yo at 39+0 weeks (PRESTON(US) 03/18/2021) that presents today for IOL re: renal calculi complicated with nephrostomy tube left side. Reports FM. Denies vaginal bleeding, LOF, painful contractions or any other problems at this time. O pos, RI, GBS neg Ax: morphine, latex. Pertinent medical hx: renal calculi complicated with nephrostomy tube left side, migraines, anxiety, depression. Last seen in clinic 03/08/2021, RBAs/SEs of IOL with cervical ripening methods including cytotec administration discussed in office, consents signed. Patient verbalizes desire to continue with IOL POC; no questions, comments, or concerns at this time. 03/11/21 15:55 Functional Status: Reports: Pain Controlled, Tolerating Diet - Review of Systems General: Reports: No Symptoms HEENT: Reports: No Symptoms Pulmonary: Reports: No Symptoms Cardiovascular: Reports: No Symptoms Gastrointestinal: Reports: No Symptoms Genitourinary: Reports: No Symptoms Musculoskeletal: Reports: No Symptoms Skin: Reports: No Symptoms Neurological: Reports: No Symptoms Psychiatric: Reports: No Symptoms - Patient Data Vitals - Most Recent: Last Vital Signs Temp Pulse Resp BP Pulse Ox 100 03/11/21 18:10 Weight - Most Recent: 201 lb I&O - Last 24 Hours: Intake & Output 03/12/21 03/12/21 03/12/21 06:59 14:59 22:59 Output Total Balance @ Lab Results Last 24 Hours: Laboratory Results - last 24 hr 03/12/21 Range/Units 09:45 Membrane Rupture POSITIVE Med Orders - Current: Current Medications Acetaminophen/Butalbital/Caffeine (Acetaminophen/Butalbital/Caffeine 325-50-40 Mg Tab) 2 tab PO Q6H PRN PRN Reason: Headache/Pain Carboprost Tromethamine (Carboprost Tromethamine 250 Mcg/1 Ml Amp) 250 mcg IM ASDIRECTED PRN PRN Reason: Post Hemorrhage Cefdinir (Cefdinir 300 Mg Cap) 300 mg PO BID ZANDER Diphenhydramine HCl (Diphenhydramine 25 Mg Cap) 25 mg PO Q4H PRN PRN Reason: Edema Last Admin: 03/12/21 13:31 Dose: 25 mg Documented by: Fluticasone Propionate (Fluticasone Propionate Nasal [place] 16 Gm Bottle) 1 gm NASBOTH DAILY ZANDER Last Admin: 03/12/21 09:57 Dose: 1 spray Documented by: Hydroxyzine HCl (Hydroxyzine Hcl 25 Mg Tab) 50 mg PO BEDTIME ZANDER Oxytocin/Sodium Chloride (Oxytocin 30 Unit/500 Ml-Ns) 30 unit in 500 mls @ 999 mls/hr IV TITRATE ZANDER Tranexamic Acid 1,000 mg/ (Sodium Chloride) 110 mls @ 660 mls/hr IV ONETIME PRN PRN Reason: Bleeding Oxytocin/Sodium Chloride (Oxytocin 30 Unit/500 Ml-Ns) 30 unit in 500 mls @ 2 mls/hr IV TITRATE ZANDER; Protocol Last Titration: 03/12/21 11:47 Dose: 3 munits/min, 3 mls/hr Documented by: Lactated Ringer's (Ringers, Lactated) 1,000 mls @ 150 mls/hr IV ASDIRECTED ZANDER Last Admin: 03/11/21 23:16 Dose: 150 mls/hr Documented by: Lidocaine HCl (Lidocaine 1% 50 Ml Mdv) 50 ml INJECT ONETIME PRN PRN Reason: Laceration repair Methylergonovine Maleate (Methylergonovine 0.2 Mg/1 Ml Amp) 0.2 mg IM A SDIRECTED PRN PRN Reason: Post Hemorrhage Misoprostol (Misoprostol 200 Mcg Tab) 200 mcg PO ONETIME PRN PRN Reason: Post Hemorrhage Misoprostol (Misoprostol 25 Mcg (1/4 Of 100 Mcg) Tab) 25 mcg VAG ONETIME PRN PRN Reason: Cervical Ripening Last Admin: 03/11/21 23:16 Dose: 25 mcg Documented by: Misoprostol (Misoprostol 25 Mcg (1/4 Of 100 Mcg) Tab) 25 mcg VAG Q4H PRN PRN Reason: Cervical Ripening Last Admin: 03/11/21 13:43 Dose: 25 mcg Documented by: Misoprostol (Misoprostol 25 Mcg (1/4 Of 100 Mcg) Tab) 25 mcg PO Q4H ZANDER Last Admin: 03/11/21 23:16 Dose: 25 mcg Documented by: Ondansetron HCl (Ondansetron 4 Mg/2 Ml Sdv) 4 mg IVPUSH Q4H PRN PRN Reason: Nausea/Vomiting Sertraline HCl (Sertraline 50 Mg Tab) 50 mg PO DAILY ZANDER Sodium Chloride (Sodium Chloride 0.9% 10 Ml Syringe) 10 ml FLUSH ASDIRECTED PRN PRN Reason: Keep Vein Open Sodium Chloride (Sodium Chloride 0.9% 2.5 Ml Syringe) 2.5 ml FLUSH ASDIRECTED PRN PRN Reason: Keep Vein Open Sodium Chloride (Sodium Chloride 0.9% 10 Ml Sdv) 10 ml IV ASDIRECTED PRN PRN Reason: IV Use Sterile Water (Water For Irrigation,Sterile 1,000 Ml Container) 1,000 ml IRR ASDIRECTED PRN PRN Reason: delivery Terbutaline Sulfate (Terbutaline 1 Mg/Ml Sdv) 0.25 mg SUBCUT ASDIRECTED PRN PRN Reason: Tacysystole Discontinued Medications Ropivacaine (Naropin 0.2%) Confirm Administered Dose 200 mls @ as directed .FRANCISCO LoyaSTK-MED ONE Stop: 03/12/21 04:27 - Exam Urinary Catheter Total Time: 0Days 0Hours General: Alert, Oriented, Cooperative, No Acute Distress HEENT: Pupils Equal, Mucous Membr. Moist/[place] Neck: Supple Lungs: Clear to Auscultation, Normal Respiratory Effort Cardiovascular: Regular Rate, Regular Rhythm GI/Abdominal Exam: Normal Bowel Sounds, Soft, Non-Tender, No Organomegaly, No Distention (Female) Exam: Normal External Exam, Enlarged Uterus ( uterus, firm U-1), Vaginal Bleeding (Scant rubra lochia, no clots.) Back Exam: Normal Inspection, Full Range of Motion Extremities: Normal Inspection, Normal Range of Motion, Non-Tender, No Pedal Edema, Normal Capillary Refill Skin: Warm, Dry, Intact Wound/Incisions: No Drainage Neurological: No New Focal Deficit (BLE epidural analgesia in place) Psy/Mental Status: Alert, Normal Affect, Normal Mood - Problem List & Annotations (1) (spontaneous vaginal delivery) SNOMED Code(s): 163125400 Code(s): O80 - ENCOUNTER FOR FULL-TERM UNCOMPLICATED DELIVERY Status: Acute Priority: High Current Visit: Yes (2) H/O nephrostomy SNOMED Code(s): 909050163 Code(s): QEG4037 - Status: Acute Priority: High Current Visit: Yes (3) Renal calculus, left SNOMED Code(s): 62583422 Code(s): N20.0 - CALCULUS OF KIDNEY Status: Acute Priority: High Current Visit: Yes (4) Lactating mother SNOMED Code(s): 705876150, 240384696 Code(s): Z39.1 - ENCOUNTER FOR CARE AND EXAMINATION OF LACTATING MOTHER Status: Acute Priority: High Current Visit: Yes - Problem List Review Problem List Initiated/Reviewed/Updated: Yes - My Orders Last 24 Hours: My Active Orders 03/11/21 18:56 Acetaminophen/Butalbital/Caff [Fioricet 325-50-40 MG] 2 tab PO Q6H PRN 03/11/21 21:00 Cefdinir [Omnicef] 300 mg PO BID hydrOXYzine HCL [Atarax] 50 mg PO BEDTIME 03/12/21 09:00 Sertraline [Zoloft] 50 mg PO DAILY 03/12/21 09:30 Fluticasone Propionate [Flonase] 1 gm NASBOTH DAILY 03/12/21 13:24 diphenhydrAMINE [Benadryl] 25 mg PO Q4H PRN - Plan Plan:: Admit to inpatient unit s/p of viable, term NBF following IOL re: left renal calculi complicated with nephrostomy tube in place in anticipation of of viable term . D/C epidural now, may ambulate with assistance within 2-4 hours. If patient has not voided within 6 hours, please notify provider. Resume regular diet. May utilize dynamics ax consultant for problems as needed. Continue Cefdinir 300 mg PO BID for UTI/nephrosotomy in place/renal infection prophylaxis. Increase sertraline from 50 to 100 mg PO daily in am. Decrease hydroxyzine from 50 mg to 25 mg PO nightly as needed for sleep/anxiety. Continue Flonase intranasal spray once each nare daily for nasal co ngestion/seasonal allergies. Repeat CBC and BMP in am. See new orders. Dr. Valencia agreeable with POC.
[2021-03-12] MEDS ORDERED: Acetaminophen 500 MG Tab PO PRN (18:52)
[2021-03-12] MEDS ORDERED: Ibuprofen 400 MG Tab PO PRN (18:52)
[2021-03-12] MEDS ORDERED: Lanolin 100% Cream 7 GM Tube TOP PRN (18:52)
[2021-03-12] MEDS ORDERED: Witch Hazel Medicated Pads 40/Jar TOP PRN (18:52)
[2021-03-12] MEDS ORDERED: Bisacodyl 10 MG Supp RECTAL PRN (18:52)
[2021-03-12] MEDS ORDERED: Benzocaine/Menthol 20%-0.5% Spray 78 GM Cannister TOP PRN (18:52)
[2021-03-12] MEDS: Acetaminophen 500 MG Tab PO PRN (19:52)
[2021-03-12] MEDS: Ibuprofen 800 MG Tab PO PRN (19:53)
[2021-03-12] MEDS: Docusate Sodium 100 MG Cap PO PRN (19:54)
[2021-03-12] MEDS: hydrOXYzine HCl 25 MG Tab PO SCH (21:20)
[2021-03-12] MEDS: Cefdinir 300 MG Cap PO SCH (21:20)
[2021-03-13 06:43] LABS: BLOOD UREA NITROGEN,BUN 9 mg/dL (7.0-18.0); CARBON DIOXIDE,CO2 26.7 mmol/L (21.0-32.0); CHLORIDE,CL 104 mmol/L (98-107); GLUCOSE RANDOM 89 mg/dL (74-106); POTASSIUM,K 4.1 mmol/L (3.5-5.1); SODIUM,NA 138 mmol/L (136-145)
--- NOTE | 2021-03-13 07:19 | PCM48HPAN ---
Post Anesthesia Note - EVALUATION WITHIN 48HRS OF ANESTHETIC Vital Signs in Normal Range: Yes Patient Participated in Evaluation: Yes Respiratory Function Stable: Yes Airway Patent: Yes Cardiovascular Function Stable: Yes Hydration Status Stable: Yes Pain Control Satisfactory: Yes (Reports mild cramping of 2-3/10, good pain control) Nausea and Vomiting Control Satisfactory: Yes (Taking PO well, denies nausea) Mental Status Recovered: Yes Vital Signs: Last Vital Signs Temp 36.6 C 03/13/21 01:12 Pulse 91 03/13/21 01:12 Resp 15 03/13/21 01:12 BP 118/59 L 03/13/21 01:12 Pulse Ox 98 03/13/21 01:12 - COMMENTS/OBSERVATIONS Free Text/Narrative:: Ambulating without difficulty. Reports full return of strength and sensation to BLE.
[2021-03-13] MEDS: Ibuprofen 800 MG Tab PO PRN ×2 (08:24→21:18)
[2021-03-13] MEDS: Sertraline 100 MG Tab PO SCH (08:24)
[2021-03-13] MEDS: Docusate Sodium 100 MG Cap PO PRN (08:24)
[2021-03-13] MEDS: Acetaminophen 500 MG Tab PO PRN ×2 (08:36→21:18)
--- NOTE | 2021-03-13 09:46 | PCM.PNPP ---
- General Info Date of Service: 03/13/21 Admission Dx/Problem (Free Text): Patient Status Order with Admit Dx/Problem 03/11/21 11:45 Patient Status [ADT] Routine Admission Diagnosis/Problem Admission Diagnosis/Problem 03/11/21 15:45 Mone is a 25 yo current PPD1 s/p of viable term NBF at 39+1 weeks (PRESTON(US) 03/18/2021) complicated with NRFHTs following IOL re: renal calculi complicated with nephrostomy tube left side; cytotec cervical ripening, AROM+pitocin augmentation. O pos, RI, GBS neg. Patient has no complaints or concerns at this time. Patient is breast and bottle feeding well, resting comf ortably in bed with in arms. Patient reports she is eating, voiding, ambulating independently and without difficulty. Patient denies any problems or concerns at this time except mild-moderate intermittent uterine cramping relieved with Tylenol and Ibuprofen. Patient reports moderate vaginal bleeding with no clots. Patient verbalizes her readiness to be discharged home this evening if possible. 03/11/21 15:55 Functional Status: Reports: Pain Controlled, Tolerating Diet, Ambulating, Urinating - Review of Systems General: Reports: No Symptoms HEENT: Reports: No Symptoms Pulmonary: Reports: No Symptoms Cardiovascular: Reports: No Symptoms Gastrointestinal: Reports: No Symptoms Genitourinary: Reports: No Symptoms Musculoskeletal: Reports: No Symptoms Skin: Reports: No Symptoms Neurological: Reports: No Symptoms Psychiatric: Reports: No Symptoms - General Info Date of Service: 03/13/21 - Patient Data Vital Signs - Most Recent: Last Vital Signs Temp 98.2 F 03/13/21 07:46 Pulse 80 03/13/21 07:46 Resp 16 03/13/21 07:46 BP 112/67 03/13/21 07:46 Pulse Ox 100 03/13/21 07:46 Weight - Most Recent: 201 lb Lab Results - Last 24 Hours: Laboratory Results - last 24 hr 03/12/21 03/13/21 03/13/21 Range/Units 09:45 06:05 06:05 WBC 20.76 H (4.0-11.0) K/uL RBC 3.69 L (4.30-5.90) M/uL Hgb 10.3 L (12.0-16.0) g/dL Hct 31.8 L (36.0-46.0) % MCV 86.2 (80.0-98.0) fL MCH 27.9 (27.0-32.0) pg MCHC 32.4 (31.0-37.0) g/dL RDW Std Deviation 44.6 (28.0-62.0) fl RDW Coeff of Jakub 15 (11.0-15.0) % Plt Count 300 (150-400) K/uL MPV 9.80 (7.40-12.00) fL Nucleated RBC % 0.0 /100WBC Nucleated RBCs # 0 K/uL Sodium 138 (136-145) mmol/L Potassium 4.1 (3.5-5.1) mmol/L Chloride 104 (98-107) mmol/L Carbon Dioxide 26.7 (21.0-32.0) mmol/L BUN 9 (7.0-18.0) mg/dL Creatinine 0.7 (0.6-1.0) mg/dL Est Cr Clr Drug Dosing 113.01 mL/min Estimated GFR (MDRD) > 60.0 ml/min Glucose 89 (74-106) mg/dL Calcium 8.0 L (8.5-10.1) mg/dL Membrane Rupture POSITIVE Med Orders - Current: Current Medications Acetaminophen (Acetaminophen 500 Mg Tab) 500 mg PO Q4H PRN PRN Reason: Pain (mild 1-3) Acetaminophen (Acetaminophen 500 Mg Tab) 1,000 mg PO Q4H PRN PRN Reason: Pain (mild 1-3) Last Admin: 03/13/21 08:36 Dose: 1,000 mg Documented by: Benzocaine/Menthol (Benzocaine/Menthol 20%-0.5% [place] 78 Gm Cannister) 78 gm TOP ASDIRECTED PRN PRN Reason: Perineal Comfort Measure Last Admin: 03/12/21 19:55 Dose: 1 canister Documented by: Bisacodyl (Bisacodyl 10 Mg Supp) 10 mg RECTAL ONETIME PRN PRN Reason: Constipation Cefdinir (Cefdinir 300 Mg Cap) 300 mg PO BID [facility] Last Admin: 03/12/21 21:20 Dose: 300 mg Documented by: Docusate Sodium (Docusate Sodium 100 Mg Cap) 100 mg PO Q12H PRN PRN Reason: Constipation Last Admin: 03/13/21 08:24 Dose: 100 mg Documented by: Emollient Ointment (Lanolin 100% Cream 7 Gm Tube) 0 gm TOP ASDIRECTED PRN PRN Reason: Sore Nipples Last Admin: 03/12/21 19:55 Dose: 7 gm Documented by: Fluticasone Propionate (Fluticasone Propionate Nasal [place] 16 Gm Bottle) 1 gm NASBOTH DAILY [facility] Hydroxyzine HCl (Hydroxyzine Hcl 25 Mg Tab) 25 mg PO BEDTIME [facility] Last Admin: 03/12/21 21:20 Dose: 25 mg Documented by: Ibuprofen (Ibuprofen 400 Mg Tab) 400 mg PO Q4H PRN PRN Reason: Pain (mild 1-3) Ibuprofen (Ibuprofen 800 Mg Tab) 800 mg PO Q6H PRN PRN Reason: Pain (mild 1-3) Last Admin: 03/13/21 08:24 Dose: 800 mg Documented by: Sertraline HCl (Sertraline 100 Mg Tab) 100 mg PO DAILY [facility] Last Admin: 03/13/21 08:24 Dose: 100 mg Documented by: Edwardo Hicks (Edwardo Hicks Medicated Pads 40/Jar) 1 pad TOP ASDIRECTED PRN PRN Reason: comfort care Last Admin: 03/12/21 19:55 Dose: 1 tub Documented by: Discontinued Medications Acetaminophen/Butalbital/Caffeine (Acetaminophen/Butalbital/Caffeine 325-50-40 Mg Tab) 2 tab PO Q6H PRN PRN Reason: Headache/Pain Carboprost Tromethamine (Carboprost Tromethamine 250 Mcg/1 Ml Amp) 250 mcg IM ASDIRECTED PRN PRN Reason: Post Hemorrhage Cefdinir (Cefdinir 300 Mg Cap) 300 mg PO BID [facility] Diphenhydramine HCl (Diphenhydramine 25 Mg Cap) 25 mg PO Q4H PRN PRN Reason: Edema Last Admin: 03/12/21 13:31 Dose: 25 mg Documented by: Fluticasone Propionate (Fluticasone Propionate Nasal [place] 16 Gm Bottle) 1 gm NASBOTH DAILY [facility] Last Admin: 03/12/21 09:57 Dose: 1 spray Documented by: Hydroxyzine HCl (Hydroxyzine Hcl 25 Mg Tab) 50 mg PO BEDTIME [facility] Oxytocin/Sodium Chloride (Oxytocin 30 Unit/500 Ml-Ns) 30 unit in 500 mls @ 999 mls/hr IV TITRATE ZANDER Tranexamic Acid 1,000 mg/ (Sodium Chloride) 110 mls @ 660 mls/hr IV ONETIME PRN PRN Reason: Bleeding Oxytocin/Sodium Chloride (Oxytocin 30 Unit/500 Ml-Ns) 30 unit in 500 mls @ 2 mls/hr IV TITRATE [facility]; Protocol Last Titration: 03/12/21 11:47 Dose: 3 munits/min, 3 mls/hr Documented by: Lactated Ringer's (Ringers, Lactated) 1,000 mls @ 150 mls/hr IV ASDIRECTED ZANDER Last Admin: 03/11/21 23:16 Dose: 150 mls/hr Documented by: Ropivacaine (Naropin 0.2%) Confirm Administered Dose 200 mls @ as directed .ROUTE .K-MED ONE Stop: 03/12/21 04:27 Lidocaine HCl (Lidocaine 1% 50 Ml Mdv) 50 ml INJECT ONETIME PRN PRN Reason: Laceration repair Methylergonovine Maleate (Methylergonovine 0.2 Mg/1 Ml Amp) 0.2 mg IM ASDIRECTED PRN PRN Reason: Post Hemorrhage Misoprostol (Misoprostol 200 Mcg Tab) 200 mcg PO ONETIME PRN PRN Reason: Post Hemorrhage Misoprostol (Misoprostol 25 Mcg (1/4 Of 100 Mcg) Tab) 25 mcg VAG ONETIME PRN PRN Reason: Cervical Ripening Last Admin: 03/11/21 23:16 Dose: 25 mcg Documented by: Misoprostol (Misoprostol 25 Mcg (1/4 Of 100 Mcg) Tab) 25 mcg VAG Q4H PRN PRN Reason: Cervical Ripening Last Admin: 03/11/21 13:43 Dose: 25 mcg Documented by: Misoprostol (Misoprostol 25 Mcg (1/4 Of 100 Mcg) Tab) 25 mcg PO Q4H ZANDER Last Admin: 03/11/21 23:16 Dose: 25 mcg Documented by: Ondansetron HCl (Ondansetron 4 Mg/2 Ml Sdv) 4 mg IVPUSH Q4H PRN PRN Reason: Nausea/Vomiting Sertraline HCl (Sertraline 50 Mg Tab) 50 mg PO DAILY ZANDER Sodium Chloride (Sodium Chloride 0.9% 10 Ml Syringe) 10 ml FLUSH ASDIRECTED PRN PRN Reason: Keep Vein Open Sodium Chloride (Sodium Chloride 0.9% 2.5 Ml Syringe) 2.5 ml FLUSH ASDIRECTED PRN PRN Reason: Keep Vein Open Sodium Chloride (Sodium Chloride 0.9% 10 Ml Sdv) 10 ml IV ASDIRECTED PRN PRN Reason: IV Use Sterile Water (Water For Irrigation,Sterile 1,000 Ml Container) 1,000 ml IRR ASDIRECTED PRN PRN Reason: delivery Terbutaline Sulfate (Terbutaline 1 Mg/Ml Sdv) 0.25 mg SUBCUT ASDIRECTED PRN PRN Reason: Tacysystole - Infant Interaction Infant Disposition, : [place] at Bedside Interaction: Holding Infant Feeding: Bottle Fed , Breastfed ; Nursed Well, Continues to Breastfeed, Encouraged to Breastfeed Support Person: - Recovery Exam Fundal Tone: Firm Fundal Level: 1 Fingerbreadths Above Umbilicus Fundal Placement: Midline Lochia Amount: Moderate Lochia Color: Rubra/Red Perineum Description: Intact, Minimal Bruising/Swelling Episiotomy/Laceration: None Bladder Status: Voiding Urinary Elimination: Voided - Exam General: Alert, Oriented, Cooperative, No Acute Distress HEENT: Pupils Equal, Mucous Membr. Moist/[place] Neck: Supple Lungs: Clear to Auscultation, Normal Respiratory Effort Cardiovascular: Regular Rate, Regular Rhythm GI/Abdominal Exam: Normal Bowel Sounds, Soft, Non-Tender, No Organomegaly, No Distention Extremities: Normal Inspection, Normal Range of Motion, Non-Tender, No Pedal Edema, Normal Capillary Refill Skin: Warm, Dry, Intact Neurological: No New Focal Deficit Psy/Mental Status: Alert, Normal Affect, Normal Mood - Problem List & Annotations (1) (spontaneous vaginal delivery) SNOMED Code(s): 293770196 Code(s): O80 - ENCOUNTER FOR FULL-TERM UNCOMPLICATED DELIVERY Status: Acute Priority: High Current Visit: Yes (2) H/O nephrostomy SNOMED Code(s): 900925207 Code(s): UEC4790 - Status: Acute Priority: High Current Visit: Yes (3) Renal calculus, left SNOMED Code(s): 26055184 Code(s): N20.0 - CALCULUS OF KIDNEY Status: Acute Priority: High Current Visit: Yes (4) Lactating mother SNOMED Code(s): 836958909, 164121420 Code(s): Z39.1 - ENCOUNTER FOR CARE AND EXAMINATION OF LACTATING MOTHER Status: Acute Priority: High Current Visit: Yes - Problem List Review Problem List Initiated/Reviewed/Updated: Yes - My Orders Last 24 Hours: My Active Orders 03/12/21 Dinner Regular Diet [DIET] 03/12/21 18:52 Acetaminophen [Tylenol Extra Strength] 1,000 mg PO Q4H PRN Acetaminophen [Tylenol Extra Strength] 500 mg PO Q4H PRN Benzocaine/Menthol [Dermoplast Pain Relief 20%-0.5% [place]] 78 gm TOP ASDIRECTED PRN Docusate Sodium [Colace] 100 mg PO Q12H PRN Ibuprofen [Motrin] 400 mg PO Q4H PRN Ibuprofen [Motrin] 800 mg PO Q6H PRN Lanolin [Lansinoh HPA] See Dose Instructions TOP ASDIRECTED PRN bisacodyL [Dulcolax] 10 mg RECTAL ONETIME PRN witch Elizabeth [Tucks] 1 pad TOP ASDIRECTED PRN Resuscitation Status Routine 03/12/21 18:54 Patient Status [ADT] Routine May Shower [RC] ASDIRECTED Up ad Ruth [RC] ASDIRECTED Vital Signs [RC] PER UNIT ROUTINE Assess Lochia [WOMSER] Per Unit Routine Assess Uterine Involution [WOMSER] Per Unit Routine Peripheral IV Discontinue [OM.PC] Routine 03/12/21 18:55 Ice Therapy [OM.PC] Per Unit Routine Perineal Care [OM.PC] Per Unit Routine Sitz Bath [OM.PC] Per Unit Routine 03/12/21 21:00 Cefdinir [Omnicef] 300 mg PO BID hydrOXYzine HCL [Atarax] 25 mg PO BEDTIME 03/13/21 09:00 Fluticasone Propionate [Flonase] 1 gm NASBOTH DAILY Sertraline [Zoloft] 100 mg PO DAILY - Plan Plan:: Continue inpatient unit care s/p of viable, term NBF following IOL re: left renal calculi complicated with nephrostomy tube in place in anticipation of of viable term . Plan to ambulate 3-5 times daily. Continue to void, ambulate, eat, hydrate, feed baby independently. Continue regular diet. May utilize moving consultant for problems as needed. Continue Cefdinir 300 mg PO BID for UTI/nephrosotomy in place/renal infection prophylaxis. Start sertraline 100 mg PO daily. Continue hydroxyzine 25 mg PO nightly as needed for sleep/anxiety. Continue Flonase intranasal spray once each nare daily for nasal congestion/seasonal allergies. WBC count elevated, plan to repeat CBC in am. See new orders. Dr. Valencia notified and agreeable with POC.
[2021-03-13] MEDS: Fluticasone Propionate Nasal Spray 16 GM Bottle NASBOTH SCH (12:29)
[2021-03-13] MEDS: Cefdinir 300 MG Cap PO SCH ×2 (12:30→21:41)
[2021-03-13] MEDS: hydrOXYzine HCl 25 MG Tab PO SCH (23:36)
--- NOTE | 2021-03-14 07:53 | PCM.DCSUM1 ---
Discharge Summary - Hospital Course Free Text/Narrative:: Discharge home with baby. Follow up with motion study technician as planned. Follow up in the clinic in 6 weeks for routine visit; sooner, if needed. Diagnosis: Stroke: No Modified Baldwin Scale: No Symptoms at All Modified Baldwin Scale Score: 0 - Discharge Data Discharge Date: 03/14/21 Discharge Disposition: Home, Self-Care 01 Condition: Good - Referral to Home Health Primary Care Physician: Claudia Bejnamin CNM, NP - Patient Instructions Diet: Regular Diet as Tolerated, Drink 8-10+ Glasses/Day Activity: As Tolerated, No Strenuous Activities, Rest and Relax Today Driving: May Drive Today Showering/Bathing: May Shower Notify Provider of: Fever, Increased Pain, Swelling and Redness, Drainage, Nausea and/or Vomiting - Discharge Plan *PRESCRIPTION DRUG MONITORING PROGRAM REVIEWED*: Not Applicable *COPY OF PRESCRIPTION DRUG MONITORING REPORT IN PATIENT COY: Not Applicable Prescriptions/Med Rec: Ibuprofen [Motrin] 800 mg PO Q6H PRN #90 tablet PRN Reason: Pain (Mild 1-3) Home Medications: Home Meds Acetaminophen/Butalbital/Caff [Fioricet 325-50-40 MG] 1 each PO Q4H 03/11/21 [History] Cefdinir [Omnicef] 600 mg PO DAILY 03/11/21 [History] Sertraline [Zoloft] 1 tab PO DAILY 03/11/21 [History] hydrOXYzine HCL [Atarax] 50 mg PO BEDTIME 03/11/21 [History] Ibuprofen [Motrin] 800 mg PO Q6H PRN #90 tablet 03/14/21 [Rx] Oxygen Therapy Mode: Room Air Referrals: Claudia Benjamin CNM, WATER METER READER [Primary Care Provider] - 04/18/21 2:00 pm - Discharge Summary/Plan Comment DC Time >30 min.: Yes - General Info Date of Service: 03/14/21 Functional Status: Reports: Pain Controlled, Tolerating Diet, Ambulating, Urinating - Review of Systems General: Reports: No Symptoms HEENT: Reports: No Symptoms Pulmonary: Reports: No Symptoms Cardiovascular: Reports: No Symptoms Gastrointestinal: Reports: No Symptoms Genitourinary: Reports: No Symptoms Musculoskeletal: Reports: No Symptoms Skin: Reports: No Symptoms Neurological: Reports: No Symptoms Psychiatric: Reports: No Symptoms - Patient Data Vitals - Most Recent: Last Vital Signs Temp 97.6 F 03/14/21 03:00 Pulse 83 03/14/21 03:00 Resp 16 03/14/21 03:00 BP 115/71 03/14/21 03:00 Pulse Ox 97 03/14/21 03:00 Weight - Most Recent: 201 lb Lab Results - Last 24 hrs: Laboratory Results - last 24 hr 03/14/21 Range/Units 05:28 WBC 13.12 H (4.0-11.0) K/uL RBC 3.48 L (4.30-5.90) M/uL Hgb 9.6 L (12.0-16.0) g/dL Hct 30.2 L (36.0-46.0) % MCV 86.8 (80.0-98.0) fL MCH 27.6 (27.0-32.0) pg MCHC 31.8 (31.0-37.0) g/dL RDW Std Deviation 45.7 (28.0-62.0) fl RDW Coeff of Jakub 15 (11.0-15.0) % Plt Count 262 (150-400) K/uL MPV 9.60 (7.40-12.00) fL Nucleated RBC % 0.0 /100WBC Nucleated RBCs # 0 K/uL Med Orders - Current: Current Medications Acetaminophen (Acetaminophen 500 Mg Tab) 500 mg PO Q4H PRN PRN Reason: Pain (mild 1-3) Acetaminophen (Acetaminophen 500 Mg Tab) 1,000 mg PO Q4H PRN PRN Reason: Pain (mild 1-3) Last Admin: 03/13/21 21:18 Dose: 1,000 mg Documented by: Benzocaine/Menthol (Benzocaine/Menthol 20%-0.5% Franklin 78 Gm Cannister) 78 gm TOP ASDIRECTED PRN PRN Reason: Perineal Comfort Measure Last Admin: 03/12/21 19:55 Dose: 1 canister Documented by: Bisacodyl (Bisacodyl 10 Mg Supp) 10 mg RECTAL ONETIME PRN PRN Reason: Constipation Cefdinir (Cefdinir 300 Mg Cap) 300 mg PO BID ZANDER Last Admin: 03/13/21 21:41 Dose: 300 mg Documented by: Docusate Sodium (Docusate Sodium 100 Mg Cap) 100 mg PO Q12H PRN PRN Reason: Constipation Last Admin: 03/13/21 08:24 Dose: 100 mg Documented by: Emollient Ointment (Lanolin 100% Cream 7 Gm Tube) 0 gm TOP ASDIRECTED PRN PRN Reason: Sore Nipples Last Admin: 03/12/21 19:55 Dose: 7 gm Documented by: Fluticasone Propionate (Fluticasone Propionate Nasal [place] 16 Gm Bottle) 1 gm NASBOTH DAILY [facility] Last Admin: 03/13/21 12:29 Dose: Not Given Documented by: Hydroxyzine HCl (Hydroxyzine Hcl 25 Mg Tab) 25 mg PO BEDTIME [facility] Last Admin: 03/13/21 23:36 Dose: 25 mg Documented by: Ibuprofen (Ibuprofen 400 Mg Tab) 400 mg PO Q4H PRN PRN Reason: Pain (mild 1-3) Ibuprofen (Ibuprofen 800 Mg Tab) 800 mg PO Q6H PRN PRN Reason: Pain (mild 1-3) Last Admin: 03/13/21 21:18 Dose: 800 mg Documented by: Sertraline HCl (Sertraline 100 Mg Tab) 100 mg PO DAILY [facility] Last Admin: 03/13/21 08:24 Dose: 100 mg Documented by: Edwardo Hicks (Edwardo Hicks Medicated Pads 40/Jar) 1 pad TOP ASDIRECTED PRN PRN Reason: comfort care Last Admin: 03/12/21 19:55 Dose: 1 tub Documented by: Discontinued Medications Acetaminophen/Butalbital/Caffeine (Acetaminophen/Butalbital/Caffeine 325-50-40 Mg Tab) 2 tab PO Q6H PRN PRN Reason: Headache/Pain Carboprost Tromethamine (Carboprost Tromethamine 250 Mcg/1 Ml Amp) 250 mcg IM ASDIRECTED PRN PRN Reason: Post Hemorrhage Cefdinir (Cefdinir 300 Mg Cap) 300 mg PO BID [facility] Diphenhydramine HCl (Diphenhydramine 25 Mg Cap) 25 mg PO Q4H PRN PRN Reason: Edema Last Admin: 03/12/21 13:31 Dose: 25 mg Documented by: Fluticasone Propionate (Fluticasone Propionate Nasal [place] 16 Gm Bottle) 1 gm NASBOTH DAILY [facility] Last Admin: 03/12/21 09:57 Dose: 1 spray Documented by: Hydroxyzine HCl (Hydroxyzine Hcl 25 Mg Tab) 50 mg PO BEDTIME ZANDER Oxytocin/Sodium Chloride (Oxytocin 30 Unit/500 Ml-Ns) 30 unit in 500 mls @ 999 mls/hr IV TITRATE ZANDER Tranexamic Acid 1,000 mg/ (Sodium Chloride) 110 mls @ 660 mls/hr IV ONETIME PRN PRN Reason: Bleeding Oxytocin/Sodium Chloride (Oxytocin 30 Unit/500 Ml-Ns) 30 unit in 500 mls @ 2 mls/hr IV TITRATE ZANDER; Protocol Last Titration: 03/12/21 11:47 Dose: 3 munits/min, 3 mls/hr Documented by: Lactated Ringer's (Ringers, Lactated) 1,000 mls @ 150 mls/hr IV ASDIRECTED ZANDER Last Admin: 03/11/21 23:16 Dose: 150 mls/hr Documented by: Ropivacaine (Naropin 0.2%) Confirm Administered Dose 200 mls @ as directed .[facility] .[facility] Stop: 03/12/21 04:27 Lidocaine HCl (Lidocaine 1% 50 Ml Mdv) 50 ml INJECT ONETIME PRN PRN Reason: Laceration repair Methylergonovine Maleate (Methylergonovine 0.2 Mg/1 Ml Amp) 0.2 mg IM ASDIRECTED PRN PRN Reason: Post Hemorrhage Misoprostol (Misoprostol 200 Mcg Tab) 200 mcg PO ONETIME PRN PRN Reason: Post Hemorrhage Misoprostol (Misoprostol 25 Mcg (1/4 Of 100 Mcg) Tab) 25 mcg VAG ONETIME PRN PRN Reason: Cervical Ripening Last Admin: 03/11/21 23:16 Dose: 25 mcg Documented by: Misoprostol (Misoprostol 25 Mcg (1/4 Of 100 Mcg) Tab) 25 mcg VAG Q4H PRN PRN Reason: Cervical Ripening Last Admin: 03/11/21 13:43 Dose: 25 mcg Documented by: Misoprostol (Misoprostol 25 Mcg (1/4 Of 100 Mcg) Tab) 25 mcg PO Q4H ZANDER Last Admin: 03/11/21 23:16 Dose: 25 mcg Documented by: Ondansetron HCl (Ondansetron 4 Mg/2 Ml Sdv) 4 mg IVPUSH Q4H PRN PRN Reason: Nausea/Vomiting Sertraline HCl (Sertraline 50 Mg Tab) 50 mg PO DAILY ZANDER Sodium Chloride (Sodium Chloride 0.9% 10 Ml Syringe) 10 ml FLUSH ASDIRECTED PRN PRN Reason: Keep Vein Open Sodium Chloride (Sodium Chloride 0.9% 2.5 Ml Syringe) 2.5 ml FLUSH ASDIRECTED PRN PRN Reason: Keep Vein Open Sodium Chloride (Sodium Chloride 0.9% 10 Ml Sdv) 10 ml IV ASDIRECTED PRN PRN Reason: IV Use Sterile Water (Water For Irrigation,Sterile 1,000 Ml Container) 1,000 ml IRR ASDIRECTED PRN PRN Reason: delivery Terbutaline Sulfate (Terbutaline 1 Mg/Ml Sdv) 0.25 mg SUBCUT ASDIRECTED PRN PRN Reason: Tacysystole - Exam General: Reports: Alert, Oriented, Cooperative, No Acute Distress Lungs: Reports: Normal Respiratory Effort Cardiovascular: Reports: Regular Rate, Regular Rhythm GI/Abdominal Exam: Soft, Non-Tender (Female) Exam: Deferred Rectal (Female) Exam: Deferred Back Exam: Reports: Normal Inspection, Full Range of Motion Extremities: Normal Inspection, Normal Range of Motion, Non-Tender, Normal Capillary Refill Skin: Reports: Warm, Dry, Intact Neurological: Reports: No New Focal Deficit, Normal Speech, Normal Tone, Sensation Intact Psy/Mental Status: Reports: Alert, Normal Affect, Normal Mood
[2021-03-14] MEDS: Fluticasone Propionate Nasal Spray 16 GM Bottle NASBOTH SCH (10:10)
[2021-03-14] MEDS: Sertraline 100 MG Tab PO SCH (10:10)
[2021-03-14] MEDS: Cefdinir 300 MG Cap PO SCH (10:51)
[2021-03-14] MEDS: Acetaminophen 500 MG Tab PO PRN (13:46)
== END 2021-03-14 18:25 | disposition home or self-care (01) | DRG 560 ==
LOC: MW.OBCHECK 11:44 → MW.OB 11:45 → OBSVTOIN 03-12 18:54 → MW.OB 03-12 21:00
PROVIDERS: ADMIT Obstetrics & Gynecology Obstetrics; ATTEND Nurse Practitioner Women's Health
PROC: 10E0XZZ Delivery of Products of Conception, External Approach (ICD-10-PCS; principal; 2021-03-12)
PROC: 10907ZC Drainage of Amniotic Fluid, Therapeutic from Products of Conception, Via Natural or Artificial Opening (ICD-10-PCS; 2021-03-12)
PROC: 3E0R3BZ Introduction of Anesthetic Agent into Spinal Canal, Percutaneous Approach (ICD-10-PCS; 2021-03-12)
PROC: 00HU33Z Insertion of Infusion Device into Spinal Canal, Percutaneous Approach (ICD-10-PCS; 2021-03-12)
DX: O76 Abnormality in fetal heart rate and rhythm complicating labor and delivery (principal); O99.892 Other specified diseases and conditions complicating childbirth; Z3A.39 39 weeks gestation of pregnancy; Z37.0 Single live birth; N20.0 Calculus of kidney; Z20.822 Contact with and (suspected) exposure to COVID-19
CPT/HCPCS: 01967; 36415; 51702; 59025; 59409; 80048; 84112; 85027; 86592; 86850; 86900; 86901; A9270-GY; J2590; J7120; U0002

== ENCOUNTER 2021-03-25 19:47 | Emergency (ER) | payer BC ==
[2021-03-25] MEDS ORDERED: Sodium Chloride 0.9% 10 ML Syringe FLUSH PRN (20:18)
[2021-03-25] MEDS ORDERED: Sodium Chloride 0.9% 2.5 ML Syringe FLUSH PRN (20:18)
[2021-03-25] MEDS ORDERED: Sodium Chloride 0.9% 1,000 ML IV ONE (20:19)
--- NOTE | 2021-03-25 20:20 | EDM.PDOC ---
ED HPI GENERAL MEDICAL PROBLEM - General Chief Complaint: Fever Stated Complaint: FEVER AND PAIN Time Seen by Provider: 03/25/21 20:08 - History of Present Illness INITIAL COMMENTS - FREE TEXT/NARRATIVE: History of present illness: [] This patient started having a fever last night at 9 PM. She has had a fever ever since then is getting worse. She feels weak and lightheaded and chills. She feels nauseated but has not vomited. She has had a couple of loose stools. She has severe pain in her vaginal area. The patient is 2 weeks and had a vaginal delivery. During her she developed a ureteral stone in the right mid ureter. She had a nephrostomy to divert. Yesterday they did a procedure to blast and remove the stone and they removed and closed her nephrostomy. This was done in [place]. Today she pulled her own stent has she had been instructed in the vaginal pain began afterwards. The patient does not really have any other symptoms that would suggest why she has a fever. She has no upper respiratory symptoms no cough and no significant pain other than in the area of her perineum. Review of systems: As per history of present illness and below otherwise all systems reviewed and negative. Past medical history: As per history of present illness and as reviewed below otherwise noncontributory. Surgical history: As per history of present illness and as reviewed below otherwise no ncontributory. Social history: No reported history of drug or alcohol abuse. Family history: As per history of present illness and as reviewed below otherwise noncontributory. Physical exam: Constitutional - well developed, well-nourished and in no acute distress HEENT - normocephalic, no evidence of trauma - external nose and mouth normal - no mass in neck and no JVD - mucosae moist EYES - full EOM, PERRL, no icterus - no evidence of inflammation, injection, or drainage Respiratory - no respiratory distress, equal bilateral expansion, lungs clear to auscultation and no abnormal lung sounds Cardiovascular - Regular Rhythm with S1 and S2 appreciated and no murmur, gallop or rub. GI - abdomen soft without distension or organomegaly - normal bowel sounds - no guard or rebound exam -her pelvis is nontender from external palpation. Her perineum looks normal. The area around the urethral meatus is actually tender in the place where she has her pain. Musculoskeletal no gross deformity of long bones or joints - no tenderness, swelling or edema Neurologic - Alert and oriented times four - CN II-XII grossly intact - motor sensory and coordination symmetrically normal Psychiatric - appropriate mood and affect with normal thought content Hematologic - No petechiae or purpura - mucosa appropriate color and sclera not pale - normal nail bed color and refill Integument - no rash or evidence of trauma - normal turgor Diagnostics: [] Therapeutics: [] Impression: [] Plan: [] Definitive disposition and diagnosis as appropriate pending reevaluation and review of above. Vaginal Pain Score (Numeric/FACES): 6 - Related Data Allergies Allergy/AdvReac Type Severity Reaction Status Date / Time latex Allergy Itching Verified 03/25/21 20:12 morphine Allergy Difficulty Verified 03/25/21 20:12 Breathing Home Meds: Home Meds Acetaminophen/Butalbital/Caff [Fioricet 325-50-40 MG] 1 each PO Q4H 03/11/21 [History] Cefdinir [Omnicef] 600 mg PO DAILY 03/11/21 [History] Sertraline [Zoloft] 1 tab PO DAILY 03/11/21 [History] hydrOXYzine HCL [Atarax] 50 mg PO BEDTIME 03/11/21 [History] Ibuprofen [Motrin] 800 mg PO Q6H PRN #90 tablet 03/14/21 [Rx] Acetaminophen/oxyCODONE [Percocet 325-5 MG] 1 - 2 each PO Q4H PRN #12 tab 03/25/21 [Rx] Ciprofloxacin HCl [Cipro] 500 mg PO BID #14 tablet 03/25/21 [Rx] Ciprofloxacin [Ciprofloxacin HCl] 500 mg PO BID #14 tab 03/25/21 [Rx] Past Medical History HEENT History: Reports: None Cardiovascular History: Reports: None Respiratory History: Reports: None Gastrointestinal History: Reports: Other (See Below) Other Gastrointestinal History: acid reflux during Genitourinary History: Reports: Pyelonephritis, Renal Calculus (Left nephrostomy in place.), UTI, 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: , Spontaneous Other LOCK TENDER CHIEF OPERATOR History: pt is 18 weeks Musculoskeletal History: Reports: None Neurological History: Reports: Migraines Psychiatric History: Reports: Anxiety, Bipolar, Depression, Eating Disorders, Other (See Below) Endocrine/Metabolic History: Reports: None Hematologic History: Reports: None Oncologic (Cancer) History: Reports: None Dermatologic History: Reports: None - Infectious Disease History Infectious Disease History: Reports: Chicken Pox - Past Surgical History HEENT Surgical History: Reports: Other (See Below) (Mandible surgery) GI Surgical History: Reports: Colonoscopy (x 2), EGD (x 2) Social & Family History - Family History Family Medical History: No Pertinent Family History OBGYN: Reports: Musculoskeletal: Reports: Arthritis Neurological: Reports: Alzheimers Disease Psychiatric: Reports: Anxiety, Bipolar, Depression Endocrine/Metabolic: Reports: Diabetes, type II, Multinodular Thyroid Hematologic: Reports: None Oncologic: Reports: Other (See Below) Other Oncologic Family History: mesothelioma - Caffeine Use Caffeine Use: Reports: None - Living Situation & Occupation Living situation: Reports: Single, with Significant Other (Boyfriend) Occupation: Employed ([place] [employer]) ED ROS GENERAL - Review of Systems Review Of Systems: Comprehensive ROS is negative, except as noted in HPI. ED EXAM, GENERAL - Physical Exam Exam: See Below Free Text/Narrative:: My physical exam is in the HPI Course - Vital Signs Text/Narrative:: 2134 hrs. patient did well in the emergency department. She had significant pain in her vulva around the meatus. She had a white count that is gone to 13,000 after having been down to 9800 on 16 March. She is on cefdinir and had been on Bactrim. Plan to do a urine culture and send prescriptions to [facility] and her pharmacy for Cipro and oxycodone acetaminophen. Last Recorded V/S: Last Vital Signs Temp 36.7 C 03/25/21 20:02 Pulse 105 H 03/25/21 20:02 Resp 15 03/25/21 20:02 BP 113/68 03/25/21 20:02 Pulse Ox 95 03/25/21 20:02 - Orders/Labs/Meds Orders: Active Orders 24 hr Category Date Time Status CULTURE BLOOD [BC] Stat Lab 03/25/21 20:40 Received CULTURE BLOOD [BC] Stat Lab 03/25/21 20:50 Received CULTURE URINE [MREF] Stat Lab 03/25/21 20:10 Received Sodium Chloride 0.9% [Normal Saline] 1,000 ml Med 03/25/21 20:19 Active IV .Bolus Sodium Chloride 0.9% [Saline Flush] Med 03/25/21 20:18 Active 10 ml FLUSH ASDIRECTED PRN Sodium Chloride 0.9% [Saline Flush] Med 03/25/21 20:18 Active 2.5 ml FLUSH ASDIRECTED PRN Blood Culture x2 Reflex Set [OM.PC] Stat Ot 03/25/21 20:18 Ordered Saline Lock Insert [OM.PC] Stat Ot 03/25/21 20:18 Ordered Medication Orders Sodium Chloride (Normal Saline) 1,000 mls @ 500 mls/hr IV .Bolus ONE Stop: 03/25/21 22:18 Last Admin: 03/25/21 20:38 Dose: 500 mls/hr Documented by: ANIGMIC Sodium Chloride (Sodium Chloride 0.9% 10 Ml Syringe) 10 ml FLUSH ASDIRECTED PRN PRN Reason: Keep Vein Open Last Admin: 03/25/21 20:37 Dose: 10 ml Documented by: ANIGMIC Sodium Chloride (Sodium Chloride 0.9% 2.5 Ml Syringe) 2.5 ml FLUSH ASDIRECTED PRN PRN Reason: Keep Vein Open Last Admin: 03/25/21 20:38 Dose: 2.5 ml Documented by: ANTONIO Labs: Laboratory Tests 03/25/21 03/25/21 03/25/21 Range/Units 20:10 20:20 20:20 WBC 13.92 H (4.0-11.0) K/uL RBC 4.42 (4.30-5.90) M/uL Hgb 12.2 (12.0-16.0) g/dL Hct 38.0 (36.0-46.0) % MCV 86.0 (80.0-98.0) fL MCH 27.6 (27.0-32.0) pg MCHC 32.1 (31.0-37.0) g/dL RDW Std Deviation 45.4 (28.0-62.0) fl RDW Coeff of Jakub 15 (11.0-15.0) % Plt Count 319 (150-400) K/uL MPV 9.40 (7.40-12.00) fL Neut % (Auto) 81.2 H (48.0-80.0) % Lymph % (Auto) 11.9 L (16.0-40.0) % [place] % (Auto) 6.5 (0.0-15.0) % Eos % (Auto) 0.3 (0.0-7.0) % Baso % (Auto) 0.1 (0.0-1.5) % Neut # (Auto) 11.3 H (1.4-5.7) K/uL Lymph # (Auto) 1.7 (0.6-2.4) K/uL [place] # (Auto) 0.9 H (0.0-0.8) K/uL Eos # (Auto) 0.0 (0.0-0.7) K/uL Baso # (Auto) 0.0 (0.0-0.1) K/uL Nucleated RBC % 0.0 /100WBC Nucleated RBCs # 0 K/uL Sodium 140 (136-145) mmol/L Potassium 3.4 L (3.5-5.1) mmol/L Chloride 101 (98-107) mmol/L Carbon Dioxide 25.1 (21.0-32.0) mmol/L BUN 11 (7.0-18.0) mg/dL Creatinine 0.8 (0.6-1.0) mg/dL Est Cr Clr Drug Dosing 98.88 mL/min Estimated GFR (MDRD) > 60.0 ml/min Glucose 115 H (74-106) mg/dL Calcium 9.1 (8.5-10.1) mg/dL Total Bilirubin 0.4 (0.2-1.0) mg/dL AST 12 L (15-37) IU/L ALT 17 (14-63) IU/L Alkaline Phosphatase 102 (46-116) U/L Total Protein 8.0 (6.4-8.2) g/dL Albumin 3.4 (3.4-5.0) g/dL Globulin 4.6 H (2.6-4.0) g/dL Albumin/Globulin Ratio 0.7 L (0.9-1.6) Urine Color YELLOW Urine Appearance SLT CLOUDY Urine pH 6.0 (5.0-8.0) Ur Specific [place] 1.020 (1.001-1.035) Urine Protein 30 H (NEGATIVE) mg/dL Urine Glucose (UA) NEGATIVE (NEGATIVE) mg/dL Urine Ketones NEGATIVE (NEGATIVE) mg/dL Urine Occult Blood LARGE H (NEGATIVE) Urine Nitrite NEGATIVE (NEGATIVE) Urine Bilirubin NEGATIVE (NEGATIVE) Urine Urobilinogen 0.2 (<2.0) EU/dL Ur Leukocyte Esterase TRACE H (NEGATIVE) Urine RBC 4-8 (0-2/HPF) Urine WBC 5-10 (0-5/HPF) Ur Epithelial Cells OCCASIONAL (NONE-FEW) Urine Bacteria FEW (NEGATIVE) Urine Mucus LIGHT (NONE-MOD) Meds: Medications Generic Name Dose Route Start Last Admin Trade Name Freq PRN Reason Stop Dose Admin Sodium Chloride 1,000 mls @ 500 mls/hr 03/25/21 20:19 03/25/21 20:38 Normal Saline IV 03/25/21 22:18 500 mls/hr .Bolus ONE Administration Sodium Chloride 10 ml 03/25/21 20:18 03/25/21 20:37 Sodium Chloride 0.9% 10 Ml Syringe FLUSH 10 ml ASDIRECTED PRN Administration Keep Vein Open Sodium Chloride 2.5 ml 03/25/21 20:18 03/25/21 20:38 Sodium Chloride 0.9% 2.5 Ml Syringe FLUSH 2.5 ml ASDIRECTED PRN Administration Keep Vein Open Discontinued Medications Generic Name Dose Route Start Last Admin Trade Name Freq PRN Reason Stop Dose Admin Ciprofloxacin 500 mg 03/25/21 21:27 Ciprofloxacin 500 Mg Tab PO 03/25/21 21:28 ONETIME ONE Oxycodone/Acetaminophen 2 tab 03/25/21 21:27 Acetaminophen/Oxycodone 325-5 Mg Tab PO 03/25/21 21:28 ONETIME ONE Departure - Departure Time of Disposition: 21:37 Disposition: Home, Self-Care 01 Condition: Good Clinical Impression: UTI (urinary tract infection), Vulvar pain - Discharge Information Prescriptions: Ciprofloxacin [Ciprofloxacin HCl] 500 mg PO BID #14 tab Acetaminophen/oxyCODONE [Percocet 325-5 MG] 1 - 2 each PO Q4H PRN #12 tab PRN Reason: Pain (Severe 7-10) Instructions: Pelvic Pain, Female, Urinary Tract Infection, Adult, [id number] Referrals: PCP,None [Primary Care Provider] - Forms: ED Department Discharge Additional Instructions: [facility] [id number] [id number] The following information is given to patients seen in the emergency department who are being discharged to home. This information is to outline your options for follow-up care. We provide all patients seen in our emergency department with a follow-up referral. The need for follow-up, as well as the timing and circumstances, are variable depending upon the specifics of your emergency department visit. If you don't have a primary care physician on staff, we will provide you with a referral. We always advise you to contact your personal physician following an emergency department visit to inform them of the circumstance of the visit and for follow-up with them and/or the need for any referrals to a consulting specialist. The emergency department will also refer you to a specialist when appropriate. This referral assures that you have the opportunity for follow-up care with a specialist. All of these measure are taken in an effort to provide you with optimal care, which includes your follow-up. Under all circumstances we always encourage you to contact your private p hysician who remains a resource for coordinating your care. When calling for follow-up care, please make the office aware that this follow-up is from your recent emergency room visit. If for any reason you are refused follow-up, please contact the Emergency Department at and asked to speak to the emergency department charge nurse. Sepsis Event Note (ED) - Evaluation Sepsis Screening Result: No Definite Risk - Focused Exam Vital Signs: Vital Signs Temp Pulse Resp BP Pulse Ox 03/25/21 20:02 36.7 C 105 H 15 113/68 95 - My Orders Last 24 Hours: My Active Orders 03/25/21 20:10 CULTURE URINE [MREF] Stat 03/25/21 20:18 Sodium Chloride 0.9% [Saline Flush] 10 ml FLUSH ASDIRECTED PRN Sodium Chloride 0.9% [Saline Flush] 2.5 ml FLUSH ASDIRECTED PRN Blood Culture x2 Reflex Set [OM.PC] Stat Saline Lock Insert [OM.PC] Stat 03/25/21 20:19 Sodium Chloride 0.9% [Normal Saline] 1,000 ml IV .Bolus 03/25/21 20:40 CULTURE BLOOD [BC] Stat 03/25/21 20:50 CULTURE BLOOD [BC] Stat - Assessment/Plan Last 24 Hours: My Active Orders 03/25/21 20:10 CULTURE URINE [MREF] Stat 03/25/21 20:18 Sodium Chloride 0.9% [Saline Flush] 10 ml FLUSH ASDIRECTED PRN Sodium Chloride 0.9% [Saline Flush] 2.5 ml FLUSH ASDIRECTED PRN Blood Culture x2 Reflex Set [OM.PC] Stat Saline Lock Insert [OM.PC] Stat 03/25/21 20:19 Sodium Chloride 0.9% [Normal Saline] 1,000 ml IV .Bolus 03/25/21 20:40 CULTURE BLOOD [BC] Stat 03/25/21 20:50 CULTURE BLOOD [BC] Stat
[2021-03-25 20:54] LABS: BLOOD UREA NITROGEN,BUN 11 mg/dL (7.0-18.0); CARBON DIOXIDE,CO2 25.1 mmol/L (21.0-32.0); CHLORIDE,CL 101 mmol/L (98-107); GLUCOSE RANDOM 115 mg/dL (74-106); POTASSIUM,K 3.4 mmol/L (3.5-5.1); SODIUM,NA 140 mmol/L (136-145)
[2021-03-25] MEDS ORDERED: Acetaminophen/oxyCODONE 325-5 MG Tab PO ONE (21:27)
[2021-03-25] MEDS ORDERED: Ciprofloxacin 500 MG Tab PO ONE (21:27)
== END 2021-03-25 22:01 | disposition home or self-care (01) ==
LOC: MW.ED 19:47
DX: O86.20 Urinary tract infection following delivery, unspecified (principal); Z91.040 Latex allergy status; Z88.5 Allergy status to narcotic agent; Z79.899 Other long term (current) drug therapy
CPT/HCPCS: 36415; 80053; 81001; 85025; 87040; 87086; 99284; A9270; J7030; 99283

== ENCOUNTER 2024-03-16 08:42 | Inpatient (IN) | payer BC ==
[2024-03-16] MEDS ORDERED: Sodium Chloride 0.9% 10 ML Syringe FLUSH PRN ×2 (10:12→17:06)
[2024-03-16] MEDS ORDERED: Butorphanol 2 MG/ML SDV IVPUSH PRN (10:12)
[2024-03-16] MEDS ORDERED: Acetaminophen 325 MG Tab PO PRN (10:12)
[2024-03-16] MEDS ORDERED: Methylergonovine 0.2 MG/1 ML Amp IM PRN (10:12)
[2024-03-16] MEDS ORDERED: Terbutaline 1 MG/ML SDV SUBCUT PRN (10:12)
[2024-03-16] MEDS ORDERED: Sodium Chloride 0.9% 2.5 ML Syringe FLUSH PRN ×2 (10:12→17:06)
[2024-03-16] MEDS ORDERED: Tranexamic Acid IN NACL,ISO-OS 1,000 MG in Premix Bag 1 BAG IV PRN (10:12)
[2024-03-16] MEDS ORDERED: Carboprost Tromethamine 250 MCG/1 mL Vial IM PRN (10:12)
[2024-03-16] MEDS ORDERED: Water For Irrigation,Sterile 1,000 ML Container IRR PRN (10:12)
[2024-03-16] MEDS ORDERED: Misoprostol 200 MCG Tab PO PRN (10:12)
[2024-03-16] MEDS: Butorphanol 2 MG/ML SDV IVPUSH PRN (10:12)
[2024-03-16] MEDS ORDERED: Sodium Chloride 0.9% 20 ML SDV IV PRN (10:12)
[2024-03-16] MEDS ORDERED: Lidocaine 1% 50 ML MDV INJECT PRN (10:12)
[2024-03-16] MEDS ORDERED: Oxytocin/0.9 % Sodium Chloride 30 UNIT/500 ML BAG IV SCH (10:15)
[2024-03-16] MEDS: Ondansetron 4 MG/2 ML SDV IVPUSH PRN (10:32)
[2024-03-16 10:42] LABS: HEMATOCRIT 30.8 % (37.0-47.0); HEMOGLOBIN 10.2 g/dL (12.0-16.0); MEAN CORPUSCULAR HEMOGLOBIN 26.6 pg (28.0-32.0); MEAN CORPUSCULAR HGB CONC 33.1 g/dL (32.0-36.0); MEAN CORPUSCULAR VOLUME 80.2 fL (83.0-99.0); MEAN PLATELET VOLUME 10.1 fL (9.4-12.3); PLATELET COUNT,PLT 215 K/uL (150-400); RED BLOOD CELL COUNT 3.84 M/uL (4.10-5.30); WHITE BLOOD CELL COUNT,WBC 12.94 K/uL (3.9-11.3)
[2024-03-16] MEDS: Lactated Ringers 1,000 ML IV SCH (10:50)
[2024-03-16] MEDS ORDERED: dexmedeTOMIDine HCl 200 MCG/2 ML SDV ONE (11:28)
[2024-03-16] MEDS ORDERED: Ropivacaine HCl/PF 200 ML ONE (11:28)
[2024-03-16] MEDS ORDERED: Bupivacaine 0.25% 10 ML SDV ONE (11:28)
[2024-03-16] MEDS ORDERED: Phenylephrine HCl In 0.9% NaCl 1 MG/10 ML Syringe ONE (11:28)
[2024-03-16] MEDS ORDERED: Phenylephrine HCl In 0.9% NaCl 1 MG/10 ML Syringe IVPUSH PRN (11:33)
[2024-03-16] MEDS ORDERED: ePHEDrine 50 MG/ML SDV IVPUSH PRN ×2 (11:33)
[2024-03-16] MEDS: Ropivacaine HCl/PF 400 MG in Premix Bag 1 BAG EPIDUR SCH (12:22)
[2024-03-16] MEDS: Oxytocin/0.9 % Sodium Chloride 30 UNIT/500 ML BAG IV SCH (13:51)
[2024-03-16 16:37] LABS: PH,UMBILICAL ARTERIAL 7.223 (7.18-7.38); PH,UMBILICAL VENOUS 7.284 (7.25-7.45)
[2024-03-16] MEDS ORDERED: Simethicone 80 MG Tab.Chew PO PRN (17:06)
[2024-03-16] MEDS: Acetaminophen 500 MG Tab PO PRN (19:58)
[2024-03-16] MEDS: Witch Hazel Medicated Pads 40/Jar TOP PRN (20:00)
[2024-03-16] MEDS: Lanolin 100% Cream 7 GM Tube TOP PRN (20:01)
[2024-03-16] MEDS: Benzocaine/Menthol 20%-0.5% Spray 78 GM Cannister TOP PRN (20:01)
[2024-03-17] MEDS: Ibuprofen 800 MG Tab PO PRN (00:14)
[2024-03-17 06:36] LABS: BASOPHILS ABSOLUTE AUTO 0.03 K/uL (0.00-0.20); BASOPHILS PERCENT AUTO 0.2 % (0.0-1.0); EOSINOPHILS ABSOLUTE AUTO 0.08 K/uL (0.00-0.45); EOSINOPHILS PERCENT AUTO 0.6 % (0.0-6.0); HEMATOCRIT 30.9 % (37.0-47.0); HEMOGLOBIN 9.9 g/dL (12.0-16.0); IMMATURE GRAN ABSOLUTE AUTO 0.18 K/uL (0.00-0.05); IMMATURE GRAN PERCENT AUTO 1.4 % (0.0-0.4); LYMPHOCYTES ABSOLUTE AUTO 2.01 K/uL (1.00-4.80); LYMPHOCYTES PERCENT AUTO 15.2 % (24.0-44.0); MEAN CORPUSCULAR HEMOGLOBIN 26.7 pg (28.0-32.0); MEAN CORPUSCULAR VOLUME 83.3 fL (83.0-99.0); MEAN PLATELET VOLUME 10.2 fL (9.4-12.3); MONOCYTES ABSOLUTE AUTO 0.84 K/uL (0.00-0.80); MONOCYTES PERCENT AUTO 6.4 % (0.0-8.0); NEUTROPHILS ABSOLUTE AUTO 10.05 K/uL (1.80-7.70); NEUTROPHILS PERCENT AUTO 76.2 % (41.0-71.0); NRBC ABSOLUTE 0.02 K/uL (0.00-0.02); NRBC PERCENT 0.2 /100WBC (0.0-0.2); PLATELET COUNT,PLT 152 K/uL (150-400); RED BLOOD CELL COUNT 3.71 M/uL (4.10-5.30); WHITE BLOOD CELL COUNT,WBC 13.19 K/uL (3.9-11.3)
[2024-03-17] MEDS: Prenatal Multivitamin with Calcium/Folic Acid/Iron Tab PO SCH (10:00)
[2024-03-17] MEDS: Docusate Sodium 100 MG Cap PO PRN (11:23)
[2024-03-17] MEDS: Ferrous Sulfate 325 MG Tab PO SCH (17:20)
== END 2024-03-17 18:55 | disposition home or self-care (01) | DRG 560 ==
LOC: MW.OBCHECK 08:42 → MW.OB 08:43 → MW.OBCHECK 08:48 → MW.OB 08:49 → OBSVTOIN 16:02 → MW.OB 22:47
PROVIDERS: ADMIT Obstetrics & Gynecology; ATTEND Obstetrics & Gynecology
PROC: 10E0XZZ Delivery of Products of Conception, External Approach (ICD-10-PCS; principal; 2024-03-16)
PROC: 10907ZC Drainage of Amniotic Fluid, Therapeutic from Products of Conception, Via Natural or Artificial Opening (ICD-10-PCS; 2024-03-16)
PROC: 0UQMXZZ Repair Vulva, External Approach (ICD-10-PCS; 2024-03-16)
PROC: 3E0R3BZ Introduction of Anesthetic Agent into Spinal Canal, Percutaneous Approach (ICD-10-PCS; 2024-03-16)
PROC: 00HU33Z Insertion of Infusion Device into Spinal Canal, Percutaneous Approach (ICD-10-PCS; 2024-03-16)
DX: O77.0 Labor and delivery complicated by meconium in amniotic fluid (principal); Z37.0 Single live birth; O36.63X0 Maternal care for excessive fetal growth, third trimester, not applicable or unspecified; O71.82 Other specified trauma to perineum and vulva; Z3A.40 40 weeks gestation of pregnancy; Z88.5 Allergy status to narcotic agent; Z91.040 Latex allergy status
CPT/HCPCS: 01967; 36415; 51702; 59025; 59409; 82803; 84112; 85025; 85027; 86592; 86850; 86900; 86901; A9270-GY; J0595; J2371; J2405; J2590; J2795; J3490; J7120